=== PATIENT | female | born 1965 | race Caucasian/White ===

== ENCOUNTER 2019-12-24 06:47 | Inpatient (IN) | payer OTHER, SELFPAY ==
[2019-12-24 06:48] VITALS: BP 152/96; PULSE 115; RESP 18; TEMP 36.7; O2SAT 96; BMI 29.0
--- NOTE | 2019-12-24 07:03 | W.ED.PSYCH ---
HPI - Psych General: Chief Complaint: Psychiatric Symptoms Stated Complaint: SI/ HALLUCINATIONS Time Seen by Provider: 12/24/19 06:53 History of Present Illness: HPI Narrative: 54-year-old female presents emergency room via EMS. She states she is having visual hallucinations she is seeing people and will landscape that is changing she finds this very frightening to the point that she felt like she would harm herself and consider commit suicide to make the hallucinations stopped. She has previously been hospitalized for suicide attempts and her scars on her left wrist from prior attempts. She is on Klonopin and Geodon she did not take her Geodon yesterday. She is extremely agitated and fidgety in the exam room. She denies any recent illness. MD complaint: suicidal ideation and altered mental status Onset (ago): hour(s) Duration: constant History of same: Yes Relieving factors: none Exacerbating factors: none Context: recent drug abuse Associated symptoms: Reports visual hallucinations, delusions, suicidal ideation and racing thoughts; Deny homicidal ideation Treatments prior to arrival: none If self harm: admits thoughts of self harm Review of Systems Const: Denies: fever, chills, body aches, change in appetite, fatigue or malaise ENMT: Denies: throat pain, ear pain, nasal discharge or nasal congestion Card: Denies: chest pain, edema, shortness of breath on exertion or shortness of breath when lying down Resp: Denies: shortness of breath, productive cough or non-productive cough GI: Denies: abdominal pain, nausea, vomiting, vomiting blood, coffee grounds in vomit, diarrhea, constipation, bloating, blood in stool or black tarry stool : Denies: flank pain, difficulty urinating, painful urination, urinary frequency or urinary urgency Skin/Breast: Denies: rash or itching Psych: Reports: visual hallucinations and suicidal ideation; Denies: homicidal ideation [facility] PFSH: Medical History (Updated 12/24/19 @ 11:52 by Brenden Cohen DO) GERD (gastroesophageal reflux disease) History of suicidal ideation S/P ORIF (open reduction internal fixation) fracture Surgical History (Updated 12/24/19 @ 08:31 by Brenden Cohen DO) H/O tubal ligation Social History Smoking and tobacco status: current every day smoker Physical Exam Const: COMMON NORMALS: no apparent distress GENERAL APPEARANCE: cooperative and comfortable ORIENTATION/CONSCIOUSNESS: Yes awake, Yes oriented to person, Yes oriented to place and Yes oriented to time HENMT: COMMON NORMALS: normocephalic, head/scalp atraumatic, hearing grossly normal bilaterally, external ears normal, EAC's normal, TM's normal bilaterally, nasal mucous membranes and turbinates normal, moist oral mucous membranes and oropharynx normal HEAD & SCALP: normocephalic and atraumatic NOSE: nasal mucous membranes and turbinates normal EXTERNAL EAR: Yes external ears normal EXTERNAL AUDITORY CANAL: EAC's normal TYMPANIC MEMBRANE: TM's normal bilaterally Eye: COMMON NORMALS: PERRL, EOMs intact bilaterally, conjunctivae normal and no scleral icterus CONJUNCTIVA: Yes conjunctivae normal PUPIL: Yes PERRL Neck/C-Spine: COMMON NORMALS: full ROM, no lymphadenopathy, supple and no JVD Lymph: LYMPHATIC: no lymphadenopathy noted and no lymphedema noted Resp: COMMON NORMALS: normal respiratory effort, no retractions, no use of accessory muscles and clear to auscultation bilaterally AUSCULTATION: clear to auscultation bilaterally Cardio: COMMON NORMALS: no JVD, regular rate, regular rhythm and no murmurs RATE: regular rate RHYTHM: regular rhythm GI: COMMON NORMALS: soft to palpation and no hepatosplenomegaly AUSCULTATION: Yes normoactive bowel sounds PALPATION: Yes soft, No tender, No guarding and Yes no hepatosplenomegaly Extremity: COMMON NORMALS: normal to inspection, normal capillary refill, no clubbing, cyanosis or edema, no calf tenderness and no pedal edema Neuro: SENSORIUM/ORIENTATION: Yes oriented to person, Yes oriented to place and Yes oriented to time Psych: THOUGHT CONTENT: Yes delusion(s) Skin: COMMON NORMALS: no rashes or lesions noted GENERAL SKIN EXAM: no rashes or lesions noted MDM - Psych Lab Data: Labs: Lab Results 12/24/19 12/24/19 12/24/19 Range/Units 07:37 07:37 08:40 WBC 8.0 (4.0-10.0) 10^3/ uL RBC 4.07 L (4.1-5.3) 10^6/u L Hgb 7.9 L (11.5-15.3) g/dL Hct 27.8 L (37.0-47.0) % MCV 68.3 L (81-99) fL MCH 19.4 L (28.0-34.0) pg MCHC 28.4 L (30.0-36.0) g/dL RDW 19.8 H (12.1-15.1) % Plt Count 313 (130-400) 10^3/c mm MPV 10.3 (7.4-10.4) fL Neut % (Auto) 76.5 % Lymph % (Auto) 16.2 % [place] % (Auto) 5.9 % Eos % (Auto) 0.5 % Baso % (Auto) 0.4 % Neut # (Auto) 6.1 (1.8-7.7) 10^3/u L Lymph # (Auto) 1.3 (0.8-4.8) 10^3/u L [place] # (Auto) 0.5 (0.2-0.9) 10^3/u L Eos # (Auto) 0.0 (0.0-0.8) 10^3/u L Baso # (Auto) 0.0 (0.0-0.1) 10^3/u L Nucleated RBC % (a uto) 0 % Nucleated RBCs # 0.0 /100WBC Sodium (136-145) mmol/L Potassium (3.5-5.1) mmol/L Chloride (98-107) mmol/L Carbon Dioxide (22-29) mmol/L Anion Gap (5-19) BUN (6-20) mg/dL Creatinine (0.5-0.9) mg/dL GFR Calculation (90-130) mL/min Glucose (65-115) mg/dL Calculated Osmolal ity (285-295) mOsm/k g Calcium (8.5-10.5) mg/dL Total Bilirubin (0.15-1.2) mg/dL AST (0-32) U/L ALT (0-33) U/L Alkaline Phosphata se (35-105) IU/L Creatine Kinase (26-192) U/L Total Protein (6.6-8.7) g/dL Albumin (3.5-5.2) g/dL Globulin (1.3-4.6) g/dL Urine Color Yellow (Yellow) Urine Appearance Clear (CLEAR) Urine pH 5 (5-7) Ur Specific Gravit y 1.005 (1.005-1.030) Urine Protein Neg (Negative) Urine Glucose (UA) Norm (Normal) Urine Ketones Negative (Negative) Urine Blood Neg (Negative) Urine Nitrate Negative (Negative) Urine Bilirubin Neg (NEGATIVE) Urine Urobilinogen Norm (Negative) mg/dL Ur Leukocyte Erika ase Negative (Negative) Salicylates (3-10) mg/dL Urine Opiates Scre en Negative (Negative) ng/mL Acetaminophen (10-30) ug/mL Ur Barbiturates Sc reen Negative (Negative) ng/mL Ur Phencyclidine S crn Negative (Negative) ng/mL Ur Amphetamines Sc reen Positive H (Negative) ng/mL U Benzodiazepines Scrn Negative (Negative) ng/mL Urine Cocaine Scre en Negative (Negative) ng/mL U Marijuana (THC) Screen Negative (Negative) ng/mL Ethyl Alcohol (0-10) mg/dL 12/24/19 12/24/19 Range/Units 08:40 08:40 WBC (4.0-10.0) 10^3/ uL RBC (4.1-5.3) 10^6/u L Hgb (11.5-15.3) g/dL Hct (37.0-47.0) % MCV (81-99) fL MCH (28.0-34.0) pg MCHC (30.0-36.0) g/dL RDW (12.1-15.1) % Plt Count (130-400) 10^3/c mm MPV (7.4-10.4) fL Neut % (Auto) % Lymph % (Auto) % [place] % (Auto) % Eos % (Auto) % Baso % (Auto) % Neut # (Auto) (1.8-7.7) 10^3/u L Lymph # (Auto) (0.8-4.8) 10^3/u L [place] # (Auto) (0.2-0.9) 10^3/u L Eos # (Auto) (0.0-0.8) 10^3/u L Baso # (Auto) (0.0-0.1) 10^3/u L Nucleated RBC % (a uto) % Nucleated RBCs # /100WBC Sodium 133 L (136-145) mmol/L Potassium 3.6 (3.5-5.1) mmol/L Chloride 96 L (98-107) mmol/L Carbon Dioxide 24 (22-29) mmol/L Anion Gap 16.6 (5-19) BUN 8 (6-20) mg/dL Creatinine 0.8 (0.5-0.9) mg/dL GFR Calculation 74.5 L (90-130) mL/min Glucose 100 (65-115) mg/dL Calculated Osmolal ity 272 L (285-295) mOsm/k g Calcium 9.2 (8.5-10.5) mg/dL Total Bilirubin 0.4 (0.15-1.2) mg/dL AST 21 (0-32) U/L ALT 14 (0-33) U/L Alkaline Phosphata se 59 (35-105) IU/L Creatine Kinase 267 H (26-192) U/L Total Protein 7.8 (6.6-8.7) g/dL Albumin 4.4 (3.5-5.2) g/dL Globulin 3.4 (1.3-4.6) g/dL Urine Color (Yellow) Urine Appearance (CLEAR) Urine pH (5-7) Ur Specific Gravit y (1.005-1.030) Urine Protein (Negative) Urine Glucose (UA) (Normal) Urine Ketones (Negative) Urine Blood (Negative) Urine Nitrate (Negative) Urine Bilirubin (NEGATIVE) Urine Urobilinogen (Negative) mg/dL Ur Leukocyte Erika ase (Negative) Salicylates 0.4 L (3-10) mg/dL Urine Opiates Scre en (Negative) ng/mL Acetaminophen < 5.0 L (10-30) ug/mL Ur Barbiturates Sc reen (Negative) ng/mL Ur Phencyclidine S crn (Negative) ng/mL Ur Amphetamines Sc reen (Negative) ng/mL U Benzodiazepines Scrn (Negative) ng/mL Urine Cocaine Scre en (Negative) ng/mL U Marijuana (THC) Screen (Negative) ng/mL Ethyl Alcohol < 10 (0-10) mg/dL Discharge Plan Discharge Patient Disposition: Admitted As Inpatient Admit Provider: Mariano Granda Clinical Impression: Suicidal ideation, Drug-induced psychotic disorder, Acute anxiety, Microcytic anemia, Rhabdomyolysis Condition: Stable Interventions: ED Discharge Assessment Last Done: 12/24/19 10:15 ED Charges Last Done: 12/24/19 10:15 Discharge Date/Time: 12/24/19 10:16 Coding Level of Care Code 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
[2019-12-24 07:48] LABS: Add Urine Microscopic? NO
[2019-12-24 07:51] LABS: Bilirubin Urine Neg (NEGATIVE); Blood Urine Neg (Negative); Glucose Urine UA Norm (Normal); Ketones Urine Negative (Negative); Leukocyte Esterase Urine Negative (Negative); Nitrate Urine Negative (Negative); Protein Urine Neg (Negative); Specific Gravity, Urine 1.005 (1.005-1.030); Urine Appearance Clear (CLEAR); Urine Color Yellow (Yellow); Urobilinogen Urine Norm (Negative); pH Urine 5 (5-7)
[2019-12-24 08:01] LABS: Amphetamines Screen Urine Positive (Negative); Barbiturates Screen Urine Negative (Negative); Benzodiazepines Screen Urine Negative (Negative); Cocaine Screen Urine Negative (Negative); Opiate Screen Urine Negative (Negative); PCP Screen Urine Negative (Negative); THC Screen Urine Negative (Negative)
[2019-12-24] MEDS: LORazepam 1 mg Tablet PO (08:21)
[2019-12-24] MEDS: ziprasidone hcl 40 mg Capsule PO ×2 (08:21→17:25)
[2019-12-24 08:48] LABS: Basophils % 0.4 %; Eosinophils % 0.5 %; Hematocrit 27.8 % (37.0-47.0); Hemoglobin 7.9 g/dL (11.5-15.3); Lymphocytes # 1.3 10^3/uL (0.8-4.8); Lymphocytes % 16.2 %; Mean Corpuscular HGB Conc 28.4 g/dL (30.0-36.0); Mean Corpuscular Hemoglobin 19.4 pg (28.0-34.0); Mean Corpuscular Volume 68.3 fL (81-99); Mean Platelet Volume 10.3 fL (7.4-10.4); Monocytes # 0.5 10^3/uL (0.2-0.9); Monocytes % 5.9 %; Neutrophils # 6.1 10^3/uL (1.8-7.7); Neutrophils % 76.5 %; Nucleated Red Blood Cells % 0 %; Platelet Count 313 10^3/cmm (130-400); Red Blood Count 4.07 10^6/uL (4.1-5.3); Red Cell Distribution Width 19.8 % (12.1-15.1)
[2019-12-24 09:02] LABS: Alanine Aminotransferase 14 U/L (0-33); Albumin Level 4.4 g/dL (3.5-5.2); Alkaline Phosphatase 59 IU/L (35-105); Anion Gap 16.6 (5-19); Aspartate Amino Transferase 21 U/L (0-32); Blood Urea Nitrogen 8 mg/dL (6-20); Calcium 9.2 mg/dL (8.5-10.5); Carbon Dioxide 24 mmol/L (22-29); Chloride 96 mmol/L (98-107); Globulin 3.4 g/dL (1.3-4.6); Glomerular Filtration Rate 74.5 mL/min (90-130); Glucose 100 mg/dL (65-115); Osmolality Calculated 272 mOsm/kg (285-295); Potassium 3.6 mmol/L (3.5-5.1); Salicylate 0.4 mg/dL (3-10); Sodium 133 mmol/L (136-145); Total Bilirubin 0.4 mg/dL (0.15-1.2); Total Protein 7.8 g/dL (6.6-8.7)
[2019-12-24 09:03] LABS: Acetaminophen < 5.0 ug/mL (10-30); Alcohol Level < 10 mg/dL (0-10)
[2019-12-24 09:47] LABS: Creatine Phosphokinase 267 U/L (26-192)
[2019-12-24 10:15] VITALS: BP 134/83; PULSE 101; RESP 18; TEMP 36.6; O2SAT 95
[2019-12-24 10:25] VITALS: BP 120/83; PULSE 104; RESP 18
[2019-12-24 12:57] VITALS: BP 122/80; PULSE 97; RESP 18; TEMP 36.6; O2SAT 97
[2019-12-24] MEDS: CLONazepam 0.5 mg Tablet PO (17:25)
[2019-12-24] MEDS: diclofenac 75 mg DR Tablet PO (17:25)
[2019-12-24] MEDS: benztropine 1 mg Tablet 0.5 MG PO (17:25)
[2019-12-24 19:51] VITALS: BP 106/72; PULSE 99; RESP 17; TEMP 36.2; O2SAT 97
[2019-12-25 06:00] VITALS: BP 117/74; PULSE 86; RESP 18; TEMP 36.5; O2SAT 93
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
[2019-12-25] MEDS: diclofenac 75 mg DR Tablet PO ×2 (08:42→17:04)
[2019-12-25] MEDS: CLONazepam 0.5 mg Tablet PO ×2 (08:42→17:05)
[2019-12-25] MEDS: benztropine 1 mg Tablet 0.5 MG PO ×2 (08:43→17:05)
[2019-12-25] MEDS: ziprasidone hcl 40 mg Capsule PO (08:43)
[2019-12-25] MEDS: pantoprazole DR 40 mg Tablet PO (08:43)
[2019-12-25 14:00] VITALS: BP 99/67; PULSE 89; RESP 18
[2019-12-25] MEDS: ziprasidone hcl 60 mg Capsule PO (17:05)
[2019-12-25 20:37] VITALS: BP 99/62; PULSE 82; RESP 20; TEMP 36.9; O2SAT 97
[2019-12-26 06:00] VITALS: BP 110/77; PULSE 78; RESP 20; TEMP 36.4; O2SAT 93
[2019-12-26] MEDS: ziprasidone hcl 60 mg Capsule PO ×2 (07:44→17:27)
[2019-12-26] MEDS: diclofenac 75 mg DR Tablet PO ×2 (09:54→17:24)
[2019-12-26] MEDS: benztropine 1 mg Tablet 0.5 MG PO ×2 (09:54→17:24)
[2019-12-26] MEDS: CLONazepam 0.5 mg Tablet PO ×2 (09:54→17:24)
[2019-12-26] MEDS: pantoprazole DR 40 mg Tablet PO (09:54)
[2019-12-26 14:00] VITALS: BP 112/77; PULSE 83; RESP 20; TEMP 36.6; O2SAT 99
--- NOTE | 2019-12-26 14:15 | P.PN_ITS ---
Subjective NPU Subjective: Interval history: Elizabeth presented today, reporting that she feels that the increase in her Geodon was the thing that she needed. She reports that she is feeling optimistic that things are going to get better if she just stays on the medication and avoids the pitfalls of her addiction past. She reports that overall, she is feeling better, she is eating fine, she slept better last night and is optimistic about the future. Mental Status Exam MSE Comments: This is an overweight, versus obese, white female, with adequate dress, grooming, and eye contact. No abnormal movements. Cooperative with exam in no acute distress. Speech was normal rate and volume. Mood described as better; affect congruent. Thought process, organized. Thought content: patient denied any suicidal or homicidal ideation, there were no delusions reported or noted, patient denied any auditory or visual hallucinations. Attention, concentration, and memory appeared intact but were not formally tested. Alert and oriented times three. Insight and judgment are fair. Vitals/I&O/Wt Last Vital Signs Temp 97.9 F 12/26/19 22:00 Pulse 128 H 12/26/19 22:00 Resp 18 12/26/19 22:00 BP 83/58 12/26/19 22:00 Pulse Ox 98 12/26/19 22:00 Weight last 48 hrs Weight 81.647 kg Data NPU : 12/24/19 08:40 12/24/19 08:40 A&P Additional A&P Information (1) Suicidal ideation: This is a 54 year old, , white female, with a history of schizophrenia who had been doing well on a lower dose of Geodon, but having some breakthrough symptoms, who presents open to a trial of increasing the medica tion. Continue medication except: Encourage individual, group, and milieu therapy. Continue q-15 minute check for safety. Will work with treatment team to find appropriate discharge plan. (2) Drug-induced psychotic disorder: (3) Acute anxiety: (4) Schizophrenia: Involuntary Hold Information 96 Hour Hold: 96 Hour Involuntary Admission: Yes 96 Hour Hold Ending Date: 12/30/19 96 Hour Hold Ending Time: 00:01 Attestations NPU Medical Necessity Statement*: Inpatient hospitalization is medically necessary and the clinically appropriate intervention at this time. We will monitor medications and make changes as indicated. Likely length of stay 1-3 days. Coding Level of Care Code Acute Stamping Press Operator for Chey Navarro
[2019-12-26 22:00] VITALS: BP 83/58; PULSE 128; RESP 18; TEMP 36.6; O2SAT 98
[2019-12-27 06:00] VITALS: BP 108/75; PULSE 93; RESP 16; TEMP 36.6; O2SAT 95
[2019-12-27] MEDS: ziprasidone hcl 60 mg Capsule PO (06:27)
[2019-12-27] MEDS: benztropine 1 mg Tablet 0.5 MG PO (08:34)
[2019-12-27] MEDS: CLONazepam 0.5 mg Tablet PO (08:34)
[2019-12-27] MEDS: pantoprazole DR 40 mg Tablet PO (08:34)
[2019-12-27] MEDS: diclofenac 75 mg DR Tablet PO (08:34)
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
[2019-12-27 13:53] VITALS: BP 108/75; PULSE 93; RESP 16; TEMP 36.6; O2SAT 95
[2019-12-27 13:54] VITALS: BP 108/75; PULSE 93; RESP 16; TEMP 36.6; O2SAT 95
== END 2019-12-27 16:20 | disposition home or self-care (01) | DRG 897 ==
LOC: ER 10:03 → NP 10:04
PROVIDERS: Admitting Provider Psychiatry & Neurology Psychiatry; Emergency Provider Family Medicine; Family Provider Nurse Practitioner Family; PCP Nurse Practitioner Family; Visit Provider Psychiatry & Neurology Psychiatry
DX: F15.951 Other stimulant use, unspecified with stimulant-induced psychotic disorder with hallucinations (principal); R45.851 Suicidal ideations; F15.90 Other stimulant use, unspecified, uncomplicated; F12.90 Cannabis use, unspecified, uncomplicated; F43.12 Post-traumatic stress disorder, chronic; Z86.19 Personal history of other infectious and parasitic diseases; E03.9 Hypothyroidism, unspecified; E78.00 Pure hypercholesterolemia, unspecified; K21.9 Gastro-esophageal reflux disease without esophagitis; F17.210 Nicotine dependence, cigarettes, uncomplicated; F20.9 Schizophrenia, unspecified; F41.9 Anxiety disorder, unspecified; Z81.8 Family history of other mental and behavioral disorders
CPT/HCPCS: 12345; 36415; 80053; 80306; 80307; 81003; 82550; 85025; 99284

== ENCOUNTER 2020-06-28 00:38 | Inpatient (IN) | payer OTHER, SELFPAY ==
[2020-06-28] VITALS (13 sets, daily range): BP systolic 105–160; BP diastolic 63–101; PULSE 70–126; RESP 15–21; TEMP 37–37.6; O2SAT 93–96; BMI 25.8
--- NOTE | 2020-06-28 00:49 | ECG_ITS ---
[facility] Test Date: 2020-06-28 Pat Name: Elizabeth Donaldson Department: Room: Gender: Female General Assignment Reporter: : 1965 Requested By: Summer Hewitt Order Number: [id number] Windy MD: BEKA STEEN Measurements Intervals [place] Rate: 115 P: 56 HI: 156 QRS: -7 QRSD: 89 T: 39 QT: 340 QTc: 471 Interpretive Statements SINUS TACHYCARDIA INFERIOR MYOCARDIAL INFARCTION , PROBABLY OLD [40+ ms Q WAVE AND/OR ST/T ABNORMALITY IN II/aVF] Compared to ECG 02/20/2019 01:01:10 Myocardial infarct finding now present T-wave abnormality no longer present Electronically Signed On 06-29-2020 19:30:51 [employer] COUN[employer] by BEKA STEEN [id number]
[2020-06-28] MEDS: LORazepam 1 mg Tablet 2 MG PO (00:55)
[2020-06-28] MEDS: lidocaine 1% INJ 20 mL SUBCUT (00:59)
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
[2020-06-28 01:51] LABS: Basophils % 0.4 %; Hematocrit 30.7 % (37.0-47.0); Lymphocytes # 0.4 10^3/uL (0.8-4.8); Lymphocytes % 3.7 %; Mean Corpuscular HGB Conc 29.3 g/dL (30.0-36.0); Mean Corpuscular Hemoglobin 21.3 pg (28.0-34.0); Mean Corpuscular Volume 72.6 fL (81-99); Mean Platelet Volume 10.5 fL (7.4-10.4); Monocytes # 0.3 10^3/uL (0.2-0.9); Monocytes % 3.1 %; Neutrophils # 9.58 10^3/uL (1.8-7.7); Neutrophils % 92.1 %; Nucleated Red Blood Cells % 0 %; Platelet Count 258 10^3/cmm (130-400); Red Blood Count 4.23 10^6/uL (4.1-5.3); Red Cell Distribution Width 19.5 % (12.1-15.1); White Blood Count 10.4 10^3/uL (4.0-10.0)
[2020-06-28 01:59] LABS: Lithium 0.1 mmol/L (0.6-1.2); Phenytoin Dilantin 0.8 ug/mL (10-20); Valproic Acid Level 2.8 ug/mL (50-100)
[2020-06-28] MEDS: iohexol 300 mg/mL 100 mL Btl IV (02:10)
[2020-06-28 02:11] LABS: Alanine Aminotransferase 12 U/L (0-33); Albumin Level 4.4 g/dL (3.5-5.2); Alkaline Phosphatase 66 IU/L (35-105); Anion Gap 17.5 (5-19); Aspartate Amino Transferase 24 U/L (0-32); Blood Urea Nitrogen 13 mg/dL (6-20); Calcium 9.2 mg/dL (8.5-10.5); Carbon Dioxide 21 mmol/L (22-29); Chloride 102 mmol/L (98-107); Globulin 3.2 g/dL (1.3-4.6); Glomerular Filtration Rate 46.6 mL/min (90-130); Glucose 140 mg/dL (65-115); Osmolality Calculated 286 mOsm/kg (285-295); Potassium 3.5 mmol/L (3.5-5.1); Salicylate 0.5 mg/dL (3-10); Sodium 137 mmol/L (136-145); Thyroid Stimulating Hormone 1.82 uIU/mL (0.27-4.20); Total Bilirubin 0.7 mg/dL (0.15-1.2); Total Protein 7.6 g/dL (6.6-8.7)
[2020-06-28 02:12] LABS: Acetaminophen < 5.0 ug/mL (10-30); Alcohol Level < 10 mg/dL (0-10)
[2020-06-28] MEDS: haloperidol inj 5 mg/mL INJ 1 mL IM (03:12)
[2020-06-28] MEDS: ceFAZolin 1,000 mg SDV 1000 MG IVP (03:31)
[2020-06-28 03:37] LABS: Partial Thromboplastin Time 26.1 SECONDS (23.9-36.7); Troponin(5th) Baseline 17 ng/L (0-10)
--- NOTE | 2020-06-28 03:57 | PC.NURSE ---
patient in bed but restless.
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
--- NOTE | 2020-06-28 05:06 | ECG_ITS ---
[facility] Test Date: 2020-06-28 Pat Name: Elizabeth Donaldson Department: Room: Gender: Female Customer Service Associate: : 1965 Requested By: Summer Hewitt Order Number: [id number] Reading MD: BEKA STEEN Measurements Intervals Ary Rate: 108 P: 55 IA: 160 QRS: -7 QRSD: 93 T: 30 QT: 358 QTc: 481 Interpretive Statements SINUS TACHYCARDIA INFERIOR MYOCARDIAL INFARCTION , PROBABLY OLD [40+ ms Q WAVE AND/OR ST/T ABNORMALITY IN II/aVF] Compared to ECG 06/28/2020 01:04:33 No significant changes Electronically Signed On 06-29-2020 19:35:22 LUMBER PULLER by BEKA STEEN [id number]
[2020-06-28] MEDS: hyDROXYzine 25 mg Capsule 50 MG PO ×2 (05:37→19:01)
[2020-06-28] MEDS: haloperidol 5 mg Tablet PO (05:37)
[2020-06-28] MEDS: dextrose 5%-sod chloride 0.45% 1,000 ML 75 ML IV ×2 (05:38→18:57)
[2020-06-28] MEDS: pantoprazole 40 mg SDV IVP (05:38)
--- NOTE | 2020-06-28 05:41 | PC.PHAR ---
Pharmacokinetic dosing service Date: 06/28/20 Time: 540 Objective: Patient: Elizabeth Donaldson Floor: ICU-2 Age: 54 yo Serum creatinine: 1.2 mg/dL Height: 67.0 Inches Weight (kg): 74.843 Diagnosis: Relevant medical/social history: Cultures and sensitivities: Other labs: Assessment: IBW (kg): 61.60 Dosing wt(kg): 74.843 Estimated Creatinine clearance (ml/min): 51.5 CRCL method: Cockcroft and Gault using ibw(default). Drug selected: Vancomycin Loading dose (mg): 0 Vd (liters): 67.4 (factor used: 0.9 L/kg) Christophe (hr-1): 0.047 Half life (hrs): 14.75 Recommended dose: 1250 mg Interval: 24 hrs Infusion time (hrs): 1.5 Predicted peak (mcg/mL): 26.5 Predicted trough (mcg/mL): 9.20 Total body weight is being used for vancomycin dosing. Renal function is stable [ ] /unstable [ ] Recommendations: Give Vancomycin 1250 mg q 24 hrs with an expected Cpeak of 26.5 mcg/ml and an expected Ctrough of 9.20 mcg/ml Renal dosing of other antibiotics (review renal dosing of other medications and list guidelines here): Thank you for the consult, will continue to follow. Signature: Rachana Townsend [facility]
--- NOTE | 2020-06-28 05:42 | PC.NURSE ---
Patient arrived to ICU at 0515. Patient is under SI precautions and monitoring. Patient agitated and having some visual hallucinations and speaking jumbled words.
--- NOTE | 2020-06-28 05:53 | XR_ITS ---
WS: [id number] XR chest 1V portable [id number] REASON FOR EXAM: Neck Lac FINDINGS: The examination is somewhat overexposed. The heart is at the upper limits of normal in size. Mild tortuosity thoracic aorta. Small horizontally oriented collection of air is seen in the soft tissues just above the mid right cl avicle. Small collection of air is also seen in the same area on the left. Vertically oriented linear collections of air are seen in the base of the neck bilaterally. A definite pneumothorax or pneumome diastinum is not identifiable at this time. No significant abnormality of the bony thorax. XR/XR chest 1V portable [id number] IMPRESSION: Soft tissue air in the neck and over the apices of both having the appearance o f subcutaneous emphysema. No pneumothorax or pneumomediastinum identified marion ramirez follow-up chest x-ray is recommended.
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
--- NOTE | 2020-06-28 05:53 | PC.NURSE ---
Dr. Koroma bedside and assessing patient, gave verbal orders to order chest xray.
[2020-06-28 06:09] LABS: Thyroid Stimulating Hormone 1.58 uIU/mL (0.27-4.20)
--- NOTE | 2020-06-28 06:11 | PC.NURSE ---
Patient is now resting with eyes closed, after being very anxious and restless upon arrival to unit. Continue care.
[2020-06-28 06:15] LABS: Vitamin B12 307 pg/mL (232-1245)
[2020-06-28 06:17] LABS: Folate Level 3.4 ng/mL (4.8-37.3)
[2020-06-28 06:26] LABS: Ferritin 11 ng/mL (15-150); Iron 12 ug/dL (37-145); Percent Saturation 3.1 % (20-50); Total Iron Binding Capacity 381 mcg/dl; Unsaturated Iron Binding 369 ug/dL (112-347)
[2020-06-28 06:38] LABS: Troponin 5 2HR 17.54 ng/L (0-10); Troponin 5 2HR Delta 0.54 ABS# (0-10)
[2020-06-28] MEDS: OLANZapine 5 mg ODT PO (06:38)
[2020-06-28 06:44] LABS: Estmated Average Glucose 94; Hemoglobin A1C 4.9 % (4.0-6.0)
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
[2020-06-28 08:26] LABS: Amphetamines Screen Urine Positive (Negative); Barbiturates Screen Urine Negative (Negative); Benzodiazepines Screen Urine Positive (Negative); Cocaine Screen Urine Negative (Negative); Opiate Screen Urine Negative (Negative); PCP Screen Urine Negative (Negative); THC Screen Urine Negative (Negative)
[2020-06-28 08:30] LABS: Add Urine Microscopic? YES; Bilirubin Urine Neg (Negative); Blood Urine Neg (Negative); Glucose Urine UA Norm (Normal); Ketones Urine 1+ (Negative); Leukocyte Esterase Urine Negative (Negative); Nitrate Urine Negative (Negative); Protein Urine Neg (Negative); Urine Appearance SL Hazy (CLEAR); Urine Color Yellow (Yellow); Urobilinogen Urine Norm (Negative)
[2020-06-28 08:31] LABS: Add Urine Culture? Yes; Bacteria Urine 3+ /hpf; WBC Urine 0-4 /hpf (0-5)
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
--- NOTE | 2020-06-28 10:17 | PC.RESP ---
SMOKING CESSATION INFORMATION SENT TO PATIENT.
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
[2020-06-28] MEDS: trazodone 50 mg Tablet PO (19:01)
--- NOTE | 2020-06-28 21:13 | PC.NURSE ---
Patient restless and anxious at the beginning of shift. Patient said she was very tired and wanted to rest. Patient seems more alert and orientated to surroundings this shift. PRN medication given per orders to help with anxiety and restlessness. 1:1 sitter at bedside to prevent patient from pulling lines. Continue care.
[2020-06-29] VITALS (20 sets, daily range): BP systolic 82–130; BP diastolic 53–82; PULSE 67–85; RESP 13–24; TEMP 36.4–37.2; O2SAT 93–96
[2020-06-29] MEDS: pantoprazole 40 mg SDV IVP (04:18)
--- NOTE | 2020-06-29 04:56 | PC.NURSE ---
Patient reported needing to void. Upon using BSC patient was unable to urinate. Upon bladder scan patient had over 1000mL's of urine in place. Notified Dr. Nickerson and received orders to place a aguirre and received 1350 mL's of urine in return at 0420. Krishan gave telephone orders to leave aguirre in place to continue to drain for measurement of urine output. Continue care.
[2020-06-29 05:10] LABS: Basophils % 0.4 %; Eosinophils # 0.1 10^3/uL (0.0-0.8); Eosinophils % 3.1 %; Hematocrit 28.2 % (37.0-47.0); Hemoglobin 8.3 g/dL (11.5-15.3); Lymphocytes # 1.1 10^3/uL (0.8-4.8); Lymphocytes % 23.7 %; Mean Corpuscular HGB Conc 29.4 g/dL (30.0-36.0); Mean Corpuscular Hemoglobin 21.2 pg (28.0-34.0); Mean Corpuscular Volume 72.1 fL (81-99); Mean Platelet Volume 10.6 fL (7.4-10.4); Monocytes # 0.4 10^3/uL (0.2-0.9); Monocytes % 8.2 %; Neutrophils % 64.4 %; Nucleated Red Blood Cells % 0 %; Platelet Count 198 10^3/cmm (130-400); Red Blood Count 3.91 10^6/uL (4.1-5.3); Red Cell Distribution Width 19.6 % (12.1-15.1); White Blood Count 4.5 10^3/uL (4.0-10.0)
--- NOTE | 2020-06-29 05:35 | PC.NURSE ---
SHIFT SUMMARY: Uneventful shift. Burkett still in place and draining appropriately. Sitter still at bedside. Continue care.
[2020-06-29 05:42] LABS: Alanine Aminotransferase 12 U/L (0-33); Albumin Level 3.5 g/dL (3.5-5.2); Alkaline Phosphatase 53 IU/L (35-105); Anion Gap 14.3 (5-19); Aspartate Amino Transferase 33 U/L (0-32); Blood Urea Nitrogen 5 mg/dL (6-20); Calcium 8.5 mg/dL (8.5-10.5); Carbon Dioxide 24 mmol/L (22-29); Chloride 104 mmol/L (98-107); Glomerular Filtration Rate 103.8 mL/min (90-130); Glucose 113 mg/dL (65-115); Magnesium 2.1 mg/dL (1.7-2.3); Osmolality Calculated 286 mOsm/kg (285-295); Phosphorus 3.4 mg/dL (2.5-4.5); Potassium 3.3 mmol/L (3.5-5.1); Sodium 139 mmol/L (136-145); Total Bilirubin 0.6 mg/dL (0.15-1.2); Total Protein 6.5 g/dL (6.6-8.7)
[2020-06-29] MEDS: dextrose 5%-sod chloride 0.45% 1,000 ML 75 ML IV (08:15)
[2020-06-29] MEDS: OLANZapine 5 mg ODT PO (08:26)
--- NOTE | 2020-06-29 08:33 | XR_ITS ---
WS: [id number] XR chest 1V portable [id number] REASON FOR EXAM: f/up pneumomediastinum FINDINGS: Compared to the previous day's chest x-ray, the subcutaneous emphysema in the base the neck and over the lung apices is resolving. (CT scan of the prior day demonstrated superior mediastinal emphysema a nd subcutaneous emphysema without pneumothorax). Area of platelike atelectasis in the lower right lung which in retrospect is present on the previous examination. The lungs appear fully inflated. XR/XR chest 1V portable [id number] IMPRESSION: Resolving subcutaneous emphysema.
[2020-06-29] MEDS: amoxicillin-clav 875-125 mg Tablet 1 TAB PO ×2 (09:29→17:04)
[2020-06-29] MEDS: LORazepam 2 mg Tablet PO (13:57)
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
[2020-06-29] MEDS: ferrous gluconate 324 mg Tablet PO (17:04)
[2020-06-29] MEDS: famotidine 20 mg Tablet PO (17:04)
--- NOTE | 2020-06-29 18:14 | PC.NURSE ---
report called to npu for transfer at this time ... bladder scan done results of 50cc noted
[2020-06-29] MEDS: trazodone 50 mg Tablet PO (21:57)
[2020-06-29] MEDS: hyDROXYzine 25 mg Capsule 50 MG PO (21:57)
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
[2020-06-30 06:00] VITALS: BP 107/58; PULSE 69; RESP 15; TEMP 36.4; O2SAT 95
[2020-06-30] MEDS: ferrous gluconate 324 mg Tablet PO ×2 (08:12→17:35)
[2020-06-30] MEDS: amoxicillin-clav 875-125 mg Tablet 1 TAB PO ×2 (08:12→20:45)
[2020-06-30] MEDS: famotidine 20 mg Tablet PO ×2 (08:12→20:46)
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
[2020-06-30 14:00] VITALS: BP 114/76; PULSE 84; RESP 18; TEMP 36.7; O2SAT 95
[2020-06-30] MEDS: hyDROXYzine 25 mg Capsule 50 MG PO (20:47)
[2020-06-30] MEDS: trazodone 50 mg Tablet PO (20:57)
[2020-06-30 21:10] VITALS: BP 112/76; PULSE 70; RESP 18; TEMP 36.4; O2SAT 96
[2020-06-30] MEDS: acetaminophen 325 mg Tablet 650 MG PO (21:29)
[2020-07-01 06:00] VITALS: BP 120/73; PULSE 80; RESP 18; TEMP 36.4; O2SAT 92
[2020-07-01] MEDS: amoxicillin-clav 875-125 mg Tablet 1 TAB PO ×2 (08:25→20:55)
[2020-07-01] MEDS: famotidine 20 mg Tablet PO ×2 (08:25→20:55)
[2020-07-01] MEDS: ferrous gluconate 324 mg Tablet PO ×2 (08:25→16:55)
[2020-07-01] MEDS: acetaminophen 325 mg Tablet 650 MG PO ×2 (09:15→16:55)
[2020-07-01 14:00] VITALS: BP 134/89; PULSE 100; RESP 18; TEMP 37
--- NOTE | 2020-07-01 15:15 | P.PN_ITS ---
Subjective NPU Subjective: Interval history: Elizabeth presents today reporting that she really understands the need for her to get connected with sober living resources. She reports that she has been trying to contact her family over the last couple days and no one is answering. She reports that they will not talk to her and they are really upset with her. We did process the fact that what she did was so dangerous and exposed the family to her intoxicated madness. She feels that part of their anger with her is that they feel she did it on purpose and she adamantly denies intent or even recollection of the exact moment. But because of that she knows she has to do better and reports that she did go to a rehab in 2016 and was quite successful after that. We agreed that we would work with the treatment team tomorrow to hopefully get her connected given that she has insurance and could possibly go to a rehab. Mental Status Exam MSE Comments: This is a well-nourished, well-developed white female looking older than her stated age with adequate eye contact in the hospital scrubs, looking less disheveled. No abnormal movements. Cooperative exam in no acute distress. Speech was more normal rate and volume. Mood described as feeling better, affect congruent. Thought process organized. Thought content: Patient denied current suicidal or homicidal ideation, there were no delusions reported or noted, she denied any auditory or visual hallucinations. Attention and concentration were intact and memory appeared reliable but none were formally tested. She is alert and oriented x3. Insight and judgment are improving and impulse control is improving. Vitals/I&O/Wt Last Vital Signs Temp 98.6 F 07/01/20 14:00 Pulse 100 07/01/20 14:00 Resp 18 07/01/20 14:00 BP 134/89 07/01/20 14:00 Pulse Ox 92 07/01/20 06:00 Weight last 48 hrs Weight 73.709 kg Physical Exam Urinary Catheter Management^: Burkett: Cath Placed During This Visit: yes, but has since been removed by the nurse Reason for Continuing Indwelling Catheter: Not indwelling catheter Urinary Catheter Date of Insertion: 06/29/20 Urinary Catheter Time of Insertion: 04:20 Date Urinary Catheter Removed: 06/29/20 Time Urinary Catheter Discontinued: 11:10 Data NPU : 06/29/20 04:06 06/29/20 04:06 A&P Additional A&P Information (1) Acute psychosis: (2) Suicidal ideation: (3) Chronic schizophrenia with acute exacerbation: (4) Methamphetamine abuse: (5) Methamphetamine-induced psychotic disorder: This is a 54-year-old white female with a long history of mental health issues, addiction and now likely methamphetamine induced psychosis which led to dangerous behavior who presents after being admitted to the ICU secondary to her psychosis. 1. Continue current medication. We continue to discuss the possibility of medication interventions but she endorses that when she is not using in general she feels quite well. 2. Continue every 15 minute checks for safety. 3. Encourage individual, group and milieu therapy. 4. We will work with the treatment team and evaluate for credible lethality with a plan to discharge to sober living treatment at the highest level of care to which she is willing to commit. Involuntary Hold Information 96 Hour Hold: 96 Hour Involuntary Admission: No 96 Hour Hold Ending Date: 12/30/19 96 Hour Hold Ending Time: 00:01 Attestations NPU Medical Necessity Statement*: EYEDOTTER hospitalization is medically necessary and the clinically appropriate intervention at this time. We will monitor medications and make changes as indicated. She will be in the hospital for over 2 midnights. Likely length of stay 1-3 days. Coding Level of Care Code Acute Safety Equipment Testing Specialist for Chey Navarro
[2020-07-01 20:17] VITALS: BP 103/71; PULSE 73; RESP 17; TEMP 36.6; O2SAT 99
[2020-07-01] MEDS: hyDROXYzine 25 mg Capsule 50 MG PO (20:55)
[2020-07-01] MEDS: trazodone 50 mg Tablet PO (20:55)
[2020-07-02] MEDS: acetaminophen 325 mg Tablet 650 MG PO ×2 (03:47→11:38)
[2020-07-02 06:00] VITALS: BP 144/98; PULSE 77; RESP 16; TEMP 36.9; O2SAT 95
[2020-07-02] MEDS: amoxicillin-clav 875-125 mg Tablet 1 TAB PO (08:31)
[2020-07-02] MEDS: famotidine 20 mg Tablet PO (08:31)
[2020-07-02] MEDS: ferrous gluconate 324 mg Tablet PO (08:39)
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
[2020-07-02 12:46] VITALS: BP 144/98; PULSE 77; RESP 16; TEMP 36.9; O2SAT 95
== END 2020-07-02 14:26 | disposition home or self-care (01) | DRG 605 ==
LOC: ER 03:08 → ICU 04:33 → NP 06-29 18:22
PROVIDERS: Admitting Provider Family Medicine; Emergency Provider Emergency Medicine; PCP Nurse Practitioner Family; Visit Provider Student in an Organized Health Care Education/Training Program
DX: S21.131A Puncture wound without foreign body of right front wall of thorax without penetration into thoracic cavity, initial encounter (principal); R45.851 Suicidal ideations; X78.1XXA Intentional self-harm by knife, initial encounter; T79.7XXA Traumatic subcutaneous emphysema, initial encounter; B19.20 Unspecified viral hepatitis C without hepatic coma; E03.9 Hypothyroidism, unspecified; E78.5 Hyperlipidemia, unspecified; F41.9 Anxiety disorder, unspecified; F20.9 Schizophrenia, unspecified; K21.9 Gastro-esophageal reflux disease without esophagitis; D50.9 Iron deficiency anemia, unspecified; F17.210 Nicotine dependence, cigarettes, uncomplicated; F15.159 Other stimulant abuse with stimulant-induced psychotic disorder, unspecified; N63.20 Unspecified lump in the left breast, unspecified quadrant; F43.10 Post-traumatic stress disorder, unspecified; E78.00 Pure hypercholesterolemia, unspecified; R33.9 Retention of urine, unspecified
CPT/HCPCS: 12002; 12345; 36415; 51702; 71045; 71260; 80053; 80156; 80164; 80178; 80185; 80306; 80307; 81001; 82607; 82728; 82746; 83036; 83540; 83550; 83735; 84100; 84145; 84443; 84484; 85025; 85045; 85610; 85730; 87086; 93005; 94664; 96372; 99285; C9113; J0690; J1630; J3370; J7050; J7799; Q9967

== ENCOUNTER 2020-10-31 23:58 | Inpatient (IN) | payer OTHER, SELFPAY ==
[2020-11-01] VITALS (7 sets, daily range): BP systolic 94–133; BP diastolic 54–82; PULSE 76–121; RESP 18–20; TEMP 37–37.7; O2SAT 9–94; BMI 25.0
--- NOTE | 2020-11-01 01:22 | CTR_ITS ---
PROCEDURE INFORMATION: Exam: CT Head Without Contrast Exam date and time: 11/01/2020 1:26 AM Age: 55 years old Clinical indication: Altered mental status/memory loss; Patient HX: Hallucinations. Unable to obtain further history. ; Additional info: Visual hallucinations TECHNIQUE: Imaging protocol: Computed tomography of the head without contrast. Radiation optimization: All CT scans at this facility use at least one of these dose optimization techniques: automated exposure control; mA and/or kV adjustment per patient size (includes targeted exams where dose is matched to clinical indication); or iterative reconstruction. 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 No acute infarct or hemorrhage. Cerebral ventricles: No ventriculomegaly. Bones/joints: Unremarkable. No acute fracture. Paranasal sinuses: Paranasal sinuses are clear. No air-fluid level. Mastoid air cells: Visualized mastoid air cells are clear. Soft tissues: Unremarkable. CT/CT head wo con* [id number] IMPRESSION: No acute infarct or hemorrhage. Radiation Dose CTDIVOL = (mGy): DLP = 1527.28 (mGy-cm)
[2020-11-01] MEDS: LORazepam 2 mg/mL INJ 1 mL 0.5 MG IVP (01:30)
--- NOTE | 2020-11-01 01:30 | ED_ITS ---
HPI - Psych General: Chief Complaint: Anxiety Stated Complaint: anxiety Time Seen by Provider: 11/01/20 00:30 Source: patient Mode of arrival: ambulatory Limitations: altered mental status History of Present Illness: HPI Narrative: 55-year-old female patient presents to the emergency department with acute anxiety. She was brought in by her brother who dropped her off in the ER and immediately left. She is complaining of anxiety that has been present for 2 days. While in the lobby, rubber tester staff states patient was experiencing visual and auditory hallucinations. She questioned staff of the helicopter pad that was in the lobby. She reports hearing voices in the back of her brothers van, but there was not anybody there . She is obviously under the influence of illicit substance, reports she possibly used methamphetamine 1 to 2 days ago. Cut willis were also noted to the right lateral neck. She states tried to kill herself today by using a ceramic knife to cut her neck. She reports her family would like it if she was . She continues to ask me if we are going to set her on fire. I attempted to console the patient she is at the hospital and is in safe environment and no one was going to hurt her. She has a history of hypothyroidism but denies taking supplemental thyroid medication. She denies fever or chills, she denies pain. She has previous history of suicidal ideation with admission to [facility]. History of schizophrenia and methamphetamine abuse. MD complaint: suicidal ideation, feels depressed and altered mental status Onset (ago): day(s) (1-2) Duration: constant History of same: Yes Context: recent drug abuse Associated psychiatric symptoms: suicidal ideation, auditory hallucinations and visual hallucinations Associated symptoms: Reports auditory hallucinations, visual hallucinations, depression and suicidal ideation Treatments prior to arrival: none If self harm: admits thoughts of self harm, has acted on plan and self-inflicted trauma Review of Systems General: Reports: 10 or more systems reviewed and unremarkable except in HPI and below Const: Denies: fever(s), chills, fatigue, malaise or diaphoresis Eyes: Denies: blurry vision or eye redness ENMT: Denies: throat pain, dental pain or disequilibrium Card: Denies: chest pain, palpitations or irregular heart rhythm Resp: Denies: dyspnea, productive cough, non-productive cough or wheezing GI: Denies: abdominal pain, nausea or vomiting : Denies: difficulty voiding or dysuria Musc: Denies: back pain Skin/Breast: Reports: skin tenderness; Denies: rash or pruritus Neuro: Denies: headache(s), weakness in extremities or behavioral changes Psych: Reports: anxiety, depression, paranoia, difficulty concentrating, visual hallucinations, auditory hallucinations and suicidal ideation Randal/Lymph: Denies: easy bruising PFSH ED PFSH: Medical History (Updated 11/01/20 @ 03:47 by SONIA Acevedo) Acute anxiety GERD (gastroesophageal reflux disease) History of suicidal ideation Microcytic anemia S/P ORIF (open reduction internal fixation) fracture Schizophrenia Surgical History H/O tubal ligation Family History Father Colon cancer Social History Smoking and tobacco status: current every day smoker Female Reproductive History: Date of last menstrual period: 09/16/17 Physical Exam Const: COMMON NORMALS: no acute distress, patient oriented x3, alert and well nourished EXAM LIMITATIONS: altered mental status GENERAL APPEARANCE: co operative, well kempt, well developed and anxious; not ill appearing and not frail appearing NUTRITIONAL APPEARANCE: thin ORIENTATION/CONSCIOUSNESS: Yes awake, Yes oriented to person, Yes oriented to place and Yes oriented to time HENMT: COMMON NORMALS: normocephalic, atraumatic, Normal external nose present and moist oral mucous membranes HEAD & SCALP: normal to inspection, normocephalic and atraumatic FACE & SINUS: normal facial exam and face symmetric NOSE: Normal external nose present MOUTH: lip normal, tongue normal and moist mucous membranes abnormal (dry) THROAT: posterior oropharynx normal and uvula midline Eye: COMMON NORMALS: Equal, round and reactive pupils present and EOMs intact bilaterally GENERAL EYE: appearance normal, both eyes and all related structures PUPIL: Yes Equal, round and reactive pupils present Neck/C-Spine: COMMON NORMALS: full ROM, no lymphadenopathy and supple GENERAL: Yes normal visual inspection and Yes trachea midline CERVICAL SPINE: Yes cervical ROM normal Lymph: LYMPHATIC: no lymphadenopathy noted Chest: COMMONS NORMALS: normal inspection of the chest and normal palpation of entire chest wall Resp: COMMON NORMALS: normal respiratory effort, No retractions, No use of accessory muscles and clear to auscultation bilaterally EFFORT & INSPECTION: Yes able to speak in complete sentences and No labored AUSCULTATION: clear to auscultation bilaterally and no wheezes Cardio: COMMON NORMALS: regular rate, regular rhythm, S1 normal heart sound present, S2 normal heart sound present and Peripheral pulses 2+ throughout RATE: regular rate and tachycardic RHYTHM: regular rhythm HEART SOUNDS: S1 normal heart sound present and S2 normal heart sound present PERIPHERAL PULSES: Peripheral pulses 2+ throughout GI: COMMON NORMALS: Normal to inspection, nondistended, normoactive bowel sounds present, Soft to palpation and non-tender INSPECTION: Yes normal to inspection, No abdominal wall ecchymosis and No Abdominal wall edema PALPATION: Yes Soft to palpation : COMMON NORMALS: Yes no CVA tenderness BLADDER/KIDNEY EXAM: Yes no CVA tenderness Back/Pelvis: COMMON NORMALS: no CVA tenderness, thoracic and lumbar spine normal to inspection, no thoracic nor lumbar tenderness, thoraco-lumbar ROM normal and straight leg raise negative bilaterally Extremity: COMMON NORMALS: normal to inspection, full ROM, capillary refill normal, no joint enlargement, no clubbing, cyanosis or edema, no calf tenderness and no pedal edema GENERAL: Yes normal exam except as noted Neuro: GEORGE COMA SCALE: document GCS findings George coma scale eye opening: Spontaneous George coma scale verbal response: Orientated George coma scale motor response: Obey commands [place] coma scale total score: 15 COMMON NORMALS: patient oriented x3 and no focal motor deficits SENSORIUM/ORIENTATION: Yes alert, Yes oriented to person, Yes oriented to place and Yes oriented to time SPEECH: speech normal GAIT: Yes Normal gait present MOTOR EXAM: 5/5 motor strength present throughout Right pupil size (mm): 5 Left pupil size (mm): 5 Psych: COMMON NORMALS: cooperative APPEARANCE: Yes grossly normal and Yes well kempt ATTITUDE: Yes paranoid and Yes bizarre ACTIVITY/MOTOR BEHAVIOR: Yes fidgeting, Yes disorganized behavior and Yes restless SPEECH: Yes excessive MOOD & AFFECT: Yes elevated mood and Yes anxious THOUGHT PROCESS: Circumstantial thought process present, disorganized and Flight of ideas present THOUGHT CONTENT: Yes delusions Delusional thought content details: paranoid and Yes Hallucination(s) present auditory and visual ATTENTION/CONCENTRATION: Yes attention grossly impaired and Yes concentration grossly impaired MEMORY/COGNITION: Yes memory grossly intact INSIGHT: Fair insight present (Psych) JUDGEMENT: Fair judgement present (Psych) Skin: COMMON NORMALS: no rashes or lesions noted, turgor normal, no petechiae and no mottling GENERAL SKIN EXAM: no rashes or lesions noted and turgor normal WOUNDS: Yes wounds noted size (0.5 cm x 3 linear to the anterior neck, horizontal, subcutaneous) and with surrounding erythema; no drainage HAIR: normal NAILS: normal Procedures Laceration Laceration 1: Site: neck (x 3 -horizontal linear subcutaneous lacerations) Side (If applicable): right Size (cm): 0.5 Description: linear and clean Depth: simple, single layer Pre-repair: wound explored, irrigated extensively, deep structures intact and extensive debridement Subcutaneous layer closed with: other (Skin adhesive) MDM - Psych MDM Narrative: Medical decision making narrative: 55-year-old female patient presents to the emergency department due to paranoia and suicidal behavior. She exhibited auditory and visual hallucinations during her stay, urine drug screen revealed methamphetamine detection. CT of the head without acute abnormalities. White blood count slightly elevated 12.1 thousand, urinary tract infection appreciated, positive leukoesterase bacteria and blood. She did not complain of abdominal pain nor has she exhibited nausea vomiting. She was able to tolerate p.o. fluids here in the ED. Chemistry unremarkable with exception of slightly elevated AST of 83. Patient received Ativan, Haldol and Benadryl in the ED due to restless and paranoia behavior. Spoke with Dr. Granda regarding patient's case, advised to obtain Covid screen due to elevated temperature which more than likely is due to methamphetamine use. He advised rapid Covid screen, rapid, if negative, agrees to admit to NPU -she did receive 1 g of Rocephin here in the ED for urinary tract infection. She is remained resting comfortably, easily awakened. No further orders from Dr. Granda obtained. Lab Data: Labs: Lab Results 11/01/20 11/01/20 11/01/20 Range/Units 01:33 01:33 02:40 WBC 12.1 H (4.0-10.0) 10^3/ uL RBC 4.16 (4.1-5.3) 10^6/u L Hgb 9.1 L (11.5-15.3) g/dL Hct 30.5 L (37.0-47.0) % MCV 73.3 L (81-99) fL MCH 21.9 L (28.0-34.0) pg MCHC 29.8 L (30.0-36.0) g/dL RDW 18.6 H (12.1-15.1) % Plt Count 271 (130-400) 10^3/c mm MPV 10.4 (7.4-10.4) fL Neut % (Auto) 84.0 % Lymph % (Auto) 7.8 % Rock % (Auto) 7.3 % Eos % (Auto) 0.1 % Baso % (Auto) 0.5 % Neut # (Auto) 10.18 H (1.8-7.7) 10^3/u L Lymph # (Auto) 0.9 (0.8-4.8) 10^3/u L Rock # (Auto) 0.9 (0.2-0.9) 10^3/u L Eos # (Auto) 0.0 (0.0-0.8) 10^3/u L Baso # (Auto) 0.1 (0.0-0.1) 10^3/u L Nucleated RBC % (a uto) 0 % Nucleated RBCs # 0.0 /100WBC Sodium 136 (136-145) mmol/L Potassium 3.8 (3.5-5.1) mmol/L Chloride 100 (98-107) mmol/L Carbon Dioxide 22 (22-29) mmol/L Anion Gap 17.8 (5-19) BUN 8 (6-20) mg/dL Creatinine 0.9 (0.5-0.9) mg/dL GFR Calculation 64.8 L (90-130) mL/min Glucose 98 (65-115) mg/dL Calculated Osmolal ity 280 L (285-295) mOsm/k g Calcium 8.7 (8.5-10.5) mg/dL Total Bilirubin 0.7 (0.15-1.2) mg/dL AST 83 H (0-32) U/L ALT 19 (0-33) U/L Alkaline Phosphata se 59 (35-105) IU/L Total Protein 7.3 (6.6-8.7) g/dL Albumin 4.3 (3.5-5.2) g/dL Globulin 3.0 (1.3-4.6) g/dL TSH 1.45 (0.27-4.20) uIU/ mL Urine Color Yellow (Yellow) Urine Appearance Clear (CLEAR) Urine pH 6.5 (5-7) Ur Specific Gravit y 1.010 (1.005-1.030) Urine Protein Neg (Negative) Urine Glucose (UA) Norm (Normal) Urine Ketones Negative (Negative) Urine Blood 3+ H (Negative) Urine Nitrate Negative (Negative) Urine Bilirubin Neg (Negative) Urine Urobilinogen Norm (Negative) mg/dL Ur Leukocyte Erika ase 2+ H (Negative) Urine RBC 40-50 H (0-2) /hpf Urine WBC 10-15 H (0-5) /hpf Ur Squamous Epith Cells 0-4 H (0-5) /hpf Amorphous Sediment Not Reportable Urine Bacteria Trace (NONE) /hpf Salicylates 0.5 L (3-10) mg/dL Urine Opiates Scre en (Negative) ng/mL Acetaminophen < 5.0 L (10-30) ug/mL Ur Barbiturates Sc reen (Negative) ng/mL Ur Phencyclidine S crn (Negative) ng/mL Ur Amphetamines Sc reen (Negative) ng/mL U Benzodiazepines Scrn (Negative) ng/mL Urine Cocaine Scre en (Negative) ng/mL U Marijuana (THC) Screen (Negative) ng/mL Ethyl Alcohol < 10 (0-10) mg/dL 11/01/20 Range/Units 02:40 WBC (4.0-10.0) 10^3/ uL RBC (4.1-5.3) 10^6/u L Hgb (11.5-15.3) g/dL Hct (37.0-47.0) % MCV (81-99) fL MCH (28.0-34.0) pg MCHC (30.0-36.0) g/dL RDW (12.1-15.1) % Plt Count (130-400) 10^3/c mm MPV (7.4-10.4) fL Neut % (Auto) % Lymph % (Auto) % Rock % (Auto) % Eos % (Auto) % Baso % (Auto) % Neut # (Auto) (1.8-7.7) 10^3/u L Lymph # (Auto) (0.8-4.8) 10^3/u L Rock # (Auto) (0.2-0.9) 10^3/u L Eos # (Auto) (0.0-0.8) 10^3/u L Baso # (Auto) (0.0-0.1) 10^3/u L Nucleated RBC % (a uto) % Nucleated RBCs # /100WBC Sodium (136-145) mmol/L Potassium (3.5-5.1) mmol/L Chloride (98-107) mmol/L Carbon Dioxide (22-29) mmol/L Anion Gap (5-19) BUN (6-20) mg/dL Creatinine (0.5-0.9) mg/dL GFR Calculation (90-130) mL/min Glucose (65-115) mg/dL Calculated Osmolal ity (285-295) mOsm/k g Calcium (8.5-10.5) mg/dL Total Bilirubin (0.15-1.2) mg/dL AST (0-32) U/L ALT (0-33) U/L Alkaline Phosphata se (35-105) IU/L Total Protein (6.6-8.7) g/dL Albumin (3.5-5.2) g/dL Globulin (1.3-4.6) g/dL TSH (0.27-4.20) uIU/ mL Urine Color (Yellow) Urine Appearance (CLEAR) Urine pH (5-7) Ur Specific Gravit y (1.005-1.030) Urine Protein (Negative) Urine Glucose (UA) (Normal) Urine Ketones (Negative) Urine Blood (Negative) Urine Nitrate (Negative) Urine Bilirubin (Negative) Urine Urobilinogen (Negative) mg/dL Ur Leukocyte Erika ase (Negative) Urine RBC (0-2) /hpf Urine WBC (0-5) /hpf Ur Squamous Epith Cells (0-5) /hpf Amorphous Sediment Urine Bacteria (NONE) /hpf Salicylates (3-10) mg/dL Urine Opiates Scre en Negative (Negative) ng/mL Acetaminophen (10-30) ug/mL Ur Barbiturates Sc reen Negative (Negative) ng/mL Ur Phencyclidine S crn Negative (Negative) ng/mL Ur Amphetamines Sc reen Positive H (Negative) ng/mL U Benzodiazepines Scrn Negative (Negative) ng/mL Urine Cocaine Scre en Negative (Negative) ng/mL U Marijuana (THC) Screen Negative (Negative) ng/mL Ethyl Alcohol (0-10) mg/dL Imaging Data^: Other Imaging: Radiologist's impression: [facility] [address] [address] Scan Report Signed Patient: Melida Donaldson #: [id number] : 1965Acct#:[id number] Age/Sex: 55 / FADM Date: 10/31/20 Loc: ERRoom/Bed: Attending Dr: Ordering Provider/Ordering MD: Jazmyne Ibrahim Date of Service: 11/01/20 Procedure(s): CT head wo con* [id number] Accession Number(s): [id number] Report Number: [id number] PROCEDURE INFORMATION: Exam: CT Head Without Contrast Exam date and time: 11/01/2020 1:26 AM Age: 55 years old Clinical indication: Altered mental status/memory loss; Patient HX: Hallucinations. Unable to obtain further history. ; Additional info: Visual hallucinations TECHNIQUE: Imaging protocol: Computed tomography of the head without contrast. Radiation optimization: All CT scans at this facility use at least one of these dose optimization techniques: automated exposure control; mA and/or kV adjustment per patient size (includes targeted exams where dose is matched to clinical indication); or iterative reconstruction. 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 No acute infarct or hemorrhage. Cerebral ventricles: No ventriculomegaly. Bones/joints: Unremarkable. No acute fracture. Paranasal sinuses: Paranasal sinuses are clear. No air-fluid level. Mastoid air cells: Visualized mastoid air cells are clear. Soft tissues: Unremarkable. CT/CT head wo con* [id number] IMPRESSION: No acute infarct or hemorrhage. Radiation Dose CTDIVOL = (mGy): DLP = 1527.28 (mGy-cm) Dictated By:Korey Fontenot Signed By:Korey FontenotSignaram Date/Time:11/01/20238 DD/ 7 EKG Data^: EKG 1: EKG interpretation date: 11/01/20 EKG interpretation time: 03:35 Other EKG comments: Sinus rhythm, ventricular rate 89, compared to previous EKGs, no acute changes. Discharge Plan Discharge Patient Disposition: Admitted As Inpatient Clinical Impression: Acute psychosis, Methamphetamine intoxication, Suicidal intent UTI (urinary tract infection) Qualifiers: Urinary tract infection type: acute cystitis Hematuria presence: with hematuria Qualified Code(s): N30.01 - Acute cystitis with hematuria Condition: Stable Coding Level of Care Code ED Monitor Technician for Chg Fwd Exam Comprehensive
[2020-11-01 01:43] LABS: Basophils # 0.1 10^3/uL (0.0-0.1); Basophils % 0.5 %; Eosinophils % 0.1 %; Hematocrit 30.5 % (37.0-47.0); Hemoglobin 9.1 g/dL (11.5-15.3); Lymphocytes # 0.9 10^3/uL (0.8-4.8); Lymphocytes % 7.8 %; Mean Corpuscular HGB Conc 29.8 g/dL (30.0-36.0); Mean Corpuscular Hemoglobin 21.9 pg (28.0-34.0); Mean Corpuscular Volume 73.3 fL (81-99); Mean Platelet Volume 10.4 fL (7.4-10.4); Monocytes # 0.9 10^3/uL (0.2-0.9); Monocytes % 7.3 %; Neutrophils # 10.18 10^3/uL (1.8-7.7); Nucleated Red Blood Cells % 0 %; Platelet Count 271 10^3/cmm (130-400); Red Blood Count 4.16 10^6/uL (4.1-5.3); Red Cell Distribution Width 18.6 % (12.1-15.1); White Blood Count 12.1 10^3/uL (4.0-10.0)
[2020-11-01] MEDS: LORazepam 2 mg/mL INJ 1 mL 1 MG IVP (01:51)
[2020-11-01] MEDS: sodium chloride 0.9% 1,000 ML 999 ML IV (02:03)
[2020-11-01 02:08] LABS: Alanine Aminotransferase 19 U/L (0-33); Albumin Level 4.3 g/dL (3.5-5.2); Alkaline Phosphatase 59 IU/L (35-105); Anion Gap 17.8 (5-19); Aspartate Amino Transferase 83 U/L (0-32); Blood Urea Nitrogen 8 mg/dL (6-20); Calcium 8.7 mg/dL (8.5-10.5); Carbon Dioxide 22 mmol/L (22-29); Chloride 100 mmol/L (98-107); Glomerular Filtration Rate 64.8 mL/min (90-130); Glucose 98 mg/dL (65-115); Osmolality Calculated 280 mOsm/kg (285-295); Potassium 3.8 mmol/L (3.5-5.1); Salicylate 0.5 mg/dL (3-10); Sodium 136 mmol/L (136-145); Thyroid Stimulating Hormone 1.45 uIU/mL (0.27-4.20); Total Bilirubin 0.7 mg/dL (0.15-1.2); Total Protein 7.3 g/dL (6.6-8.7)
[2020-11-01 02:09] LABS: Acetaminophen < 5.0 ug/mL (10-30); Alcohol Level < 10 mg/dL (0-10)
--- NOTE | 2020-11-01 02:17 | ECG_ITS ---
[facility] ED Test Date: 2020-11-01 Pat Name: Elizabeth Donaldson Department: Room: 154 Gender: Female Silk Blocker: : 1965 Requested By: Jazmyne Giraldo Order Number: [id number] Windy MD: Leilani Neil M.D. Measurements Intervals [place] Rate: 89 P: 58 MI: 170 QRS: -5 QRSD: 89 T: 6 QT: 401 QTc: 488 Interpretive Statements SINUS RHYTHM LOW QRS VOLTAGE IN PRECORDIAL LEADS [QRS DEFLECTION < 1.0 mV IN CHEST LEADS] MODERATE ST DEPRESSION [0.05+ mV ST DEPRESSION] Compared to ECG 06/28/2020 03:19:26 Low QRS voltage now present ST (T wave) deviation now present Sinus tachycardia no longer present Myocardial infarct finding no longer present Electronically Signed On 11-07-2020 8:03:06 CDT by Leilani Neil M.D. [email or web address]
[2020-11-01 02:53] LABS: Glucose Urine UA Norm (Normal); Ketones Urine Negative (Negative); Protein Urine Neg (Negative); Urine Appearance Clear (CLEAR); Urine Color Yellow (Yellow); pH Urine 6.5 (5-7)
[2020-11-01 02:54] LABS: Add Urine Microscopic? YES; Bilirubin Urine Neg (Negative); Blood Urine 3+ (Negative); Leukocyte Esterase Urine 2+ (Negative); Nitrate Urine Negative (Negative); RBC Urine 40-50 /hpf (0-2); Urobilinogen Urine Norm (Negative)
[2020-11-01 02:55] LABS: Add Urine Culture? Yes; Bacteria Urine TRACE /hpf; Squamous Epithelial Cell Urine 0-4 /hpf (0-5)
[2020-11-01] MEDS: haloperidol inj 5 mg/mL INJ 1 mL IVP (02:55)
[2020-11-01] MEDS: diphenhydrAMINE 50 mg/mL SDV 1mL 25 MG IVP (03:00)
[2020-11-01 03:26] LABS: Amphetamines Screen Urine Positive (Negative); Barbiturates Screen Urine Negative (Negative); Benzodiazepines Screen Urine Negative (Negative); Cocaine Screen Urine Negative (Negative); Opiate Screen Urine Negative (Negative); PCP Screen Urine Negative (Negative); THC Screen Urine Negative (Negative)
[2020-11-01] MEDS: cefTRIAXone 1,000 MG in sodium chloride 0.9% (plus) 50 ML 100 MG IV (04:04)
[2020-11-01 05:37] LABS: SARS Covid-2 Antigen Negative (Negative)
[2020-11-01] MEDS: pantoprazole DR 40 mg Tablet PO (07:32)
[2020-11-01] MEDS: ziprasidone hcl 40 mg Capsule PO ×2 (07:33→18:49)
[2020-11-01] MEDS: CLONazepam 0.5 mg Tablet PO ×2 (07:33→21:27)
[2020-11-01] MEDS: benztropine 1 mg Tablet 0.5 MG PO ×2 (07:34→21:27)
[2020-11-01] MEDS: diclofenac 75 mg DR Tablet PO ×2 (07:34→21:26)
[2020-11-01] MEDS: famotidine 20 mg Tablet PO ×2 (07:35→21:28)
--- NOTE | 2020-11-01 15:18 | P.HP_ITS ---
Providers/Chief Complaint Admitting Physician: Donald Jaeger DO Primary Care Provider: Rachel Arcos Chief Complaint: anxiety HPI NPU History of Present Illness Elizabeth Donaldson is a 55 year old female with a history of schizophrenia and anxiety presented to the emergency department with confusion, hallucinations, delusions. Patient is somewhat obtunded, sleepy, difficult historian and not able to provide many details although she does report some depressive symptoms secondary to family stress and ongoing anxiety symptoms. Reports that she had a panic attack last night and believes that is why she came to the emergency department. Patient does report recent methamphetamine use within the past day or 2. Reports that she typically uses methamphetamine every couple of months. Currently denying any auditory or visual destinations. Currently denying any suicidal ideation although she does report having recent suicidal ideation. Review of Systems General: Reports: ROS unobtainable due to mental status Meds NPU Home Medications Medication Instructions Recorded Confirmed Last Taken Type benztropine 0.5 mg PO BID 30 Days #60 tab 12/27/19 11/01/20 Unknown Rx clonazepam 0.5 mg PO BID 30 Days #60 tab 12/27/19 11/01/20 Unknown Rx diclofenac sodium 75 mg PO BID 30 Days #60 tab 12/27/19 11/01/20 Unknown Rx famotidine 20 mg PO BID 30 Days #30 tab 12/27/19 11/01/20 Unknown Rx omeprazole 20 mg PO DAILY 30 Days #30 cap 12/27/19 11/01/20 Unknown Rx fluoxetine [Prozac] 20 mg PO BEDTIME 06/28/20 11/01/20 Unknown History ziprasidone HCl 40 mg PO BID 11/01/20 11/01/20 Unknown History Allergies Allergy/AdvReac Type Severity Reaction Status Date / Time No Known Allergies Allergy Verified 11/01/20 05:50 PFSH NPU PFSH: Medical History Acute anxiety GERD (gastroesophageal reflux disease) History of suicidal ideation Microcytic anemia S/P ORIF (open reduction internal fixation) fracture Schizophrenia Surgical History H/O tubal ligation Family History Father Colon cancer Social History Smoking and tobacco status: current every day smoker Other Psychiatric History: Other Psychiatric History: Previous H&P reviewed, multiple psychiatric admissions, reports outpatient medication management at [facility], unclear on when last follow-up occurred. Mental Status Exam MSE Comments: Appears older than stated age, disheveled, unkempt hair, lying in bed, poor eye contact, frequently rolling over away from interviewer Psychomotor activity is decreased, no agitation Speech is low volume, mumbling, requires prompting, fair articulation, not pressured I am fine, incongruent, constricted, not labile Sleepy, oriented to person, place, time Memory and concentration appear to be fair at best per interview Intellectual functioning is difficult to assess, average at best based on vocabulary, interview Thought process, linear but brief, no flight of ideas, no looseness of associations Thought content, no delusions reported, does not appear to be attending to any internal stimuli, no suicidal or homicidal ideation Insight and judgment appears to be fair Vitals/I&O/Wt Last Vital Signs Temp 98.8 F 11/01/20 14:00 Pulse 84 11/01/20 14:00 Resp 20 H 11/01/20 14:00 BP 107/67 11/01/20 14:00 Pulse Ox 94 11/01/20 14:00 11/01/20 11/01/20 11/01/20 06:59 14:59 22:59 Intake Total 1050 / 1050 Balance 1050 / 1050 Weight last 48 hrs Weight 72.575 kg Data NPU : 11/01/20 01:33 11/01/20 01:33 A&P Assessment and plan (1) Acute psychosis: Status: Acute (2) Methamphetamine abuse: Status: Acute Additional A&P Information 55-year-old female with history of schizophrenia and methamphetamine abuse presented to the emergency department with confusion, disorganization in the context of recent methamphetamine use. Unclear as to whether patient was suicidal or not but reports recent suicidal ideation and stress related symptoms. Continues to report depressive and anxiety symptoms. INVOLUNTARY ADMIT to inpatient psychiatry CONTINUE current medication, continue to monitor Encourage patient to participate in unit activities to include group sessions, u nit milieu Involuntary Hold Information 96 Hour Hold: 96 Hour Involuntary Admission: No 96 Hour Hold Ending Date: 11/07/20 96 Hour Hold Ending Time: 02:00 Attestations NPU Medical Necessity Statement*: Require psychiatric hospitalization for medication stabilization, coordination for safe discharge Time Spent in Patient Care: Greater than 35 minutes (>than 50% of time spent in counselling and/or direct pt care on unit) . Coding Level of Care Code Acute Heel Blacker for Chey Navarro Diagnoses Acute psychosis F23 Methamphetamine abuse F15.10
[2020-11-01] MEDS: fluoxetine 20 mg Capsule PO (21:27)
[2020-11-01] MEDS: hyDROXYzine 25 mg Capsule 50 MG PO (21:28)
[2020-11-02 06:00] VITALS: BP 146/97; PULSE 99; RESP 18; TEMP 36.4; O2SAT 96
[2020-11-02] MEDS: pantoprazole DR 40 mg Tablet PO (08:09)
[2020-11-02] MEDS: ziprasidone hcl 40 mg Capsule PO ×2 (08:09→17:06)
[2020-11-02] MEDS: famotidine 20 mg Tablet PO (08:09)
[2020-11-02] MEDS: benztropine 1 mg Tablet 0.5 MG PO ×2 (08:09→20:22)
[2020-11-02] MEDS: CLONazepam 0.5 mg Tablet PO (08:09)
[2020-11-02] MEDS: diclofenac 75 mg DR Tablet PO ×2 (08:09→20:22)
[2020-11-02] MEDS: acetaminophen 325 mg Tablet 650 MG PO (08:10)
--- NOTE | 2020-11-02 13:45 | PM.NPN ---
Subjective NPU Subjective: Interval history: Continues to be soporific, does not participate in interview, rolls over away from interviewer and does not provide responses to interview questions. Mental Status Exam MSE Comments: Lying in bed, sleeping, does not participate in interview No psychomotor agitation Mumbles but does not say anything intelligible for response to questions Does not provide stated mood Unable to assess memory or concentration Does not appear to be attending to any internal stimuli Insight and judgment appear to be limited Vitals/I&O/Wt Last Vital Signs Temp 97.6 F 11/02/20 06:00 Pulse 99 11/02/20 06:00 Resp 18 11/02/20 06:00 BP 146/97 11/02/20 06:00 Pulse Ox 96 11/02/20 06:00 Weight last 48 hrs Weight 72.575 kg Data NPU : 11/01/20 01:33 11/01/20 01:33 Micro: Microbiology 11/01/20 02:40 Urine Culture - Preliminary Urine,Clean Catch Microbiology 11/01/20 02:40 Urine,Clean Catch Urine Culture - Preliminary A&P Assessment and plan (1) Acute psychosis: Status: Acute (2) Methamphetamine abuse: Status: Acute Additional A&P Information Does not participate in interview today, sleeping most of the day despite several attempts to reevaluate CONTINUE current medication, continue to monitor Involuntary Hold Information 96 Hour Hold: 96 Hour Involuntary Admission: No 96 Hour Hold Ending Date: 11/07/20 96 Hour Hold Ending Time: 02:00 Attestations NPU Medical Necessity Statement*: Continues to require psychiatric hospitalization for medication stabilization, coordination for safe discharge Coding Level of Care Code Acute Chief Librarian Circulation Department for Chey Navarro Diagnoses Acute psychosis F23 Methamphetamine abuse F15.10
[2020-11-02 14:00] VITALS: BP 101/64; PULSE 98; RESP 20; TEMP 36.4; O2SAT 95
[2020-11-02] MEDS: CLONazepam 0.5 mg Tablet 0.25 MG PO (20:22)
[2020-11-02] MEDS: fluoxetine 20 mg Capsule PO (20:23)
[2020-11-02 22:00] VITALS: BP 113/74; PULSE 85; RESP 17; TEMP 36.6; O2SAT 95
[2020-11-03 06:00] VITALS: BP 114/68; PULSE 64; RESP 16; TEMP 36.7; O2SAT 98
[2020-11-03] MEDS: benztropine 1 mg Tablet 0.5 MG PO ×2 (08:59→20:58)
[2020-11-03] MEDS: CLONazepam 0.5 mg Tablet 0.25 MG PO ×2 (08:59→20:59)
[2020-11-03] MEDS: pantoprazole DR 40 mg Tablet PO (09:00)
[2020-11-03] MEDS: ziprasidone hcl 40 mg Capsule PO ×2 (09:00→17:03)
[2020-11-03] MEDS: diclofenac 75 mg DR Tablet PO ×2 (09:00→20:57)
--- NOTE | 2020-11-03 12:27 | P.PN_ITS ---
Subjective NPU Subjective: Interval history: Patient is much more alert today, walking around on the unit although continues to be somewhat confused with frequent pauses before responses Reports some depressive symptoms but denies any suicidal ideation Denies any anxiety symptoms Denies any auditory or visual hallucinations, no stated delusions Reports that she slept so-so. Reports that her appetite is improving Reports being compliant with her medication and denies any medication side effe cts Mental Status Exam MSE Comments: Appropriately groomed and dressed, standing near the nurses station, polite, interactive, good eye contact Psychomotor activity is neither increased nor decreased, no agitation Speech is normal volume, normal rate, spontaneous, clear articulation, not pressured I feel a little better, full range, not labile Alert, oriented to person, place, time, not to situation Memory and concentration appear to be fair at best per interview Thought process, linear but brief, no flight of ideas, no looseness of associations Thought content, no delusions reported, no hallucinations, no suicidal or homicidal ideation Insight and judgment appears to be fair Vitals/I&O/Wt Last Vital Signs Temp 98.1 F 11/03/20 06:00 Pulse 64 11/03/20 06:00 Resp 16 11/03/20 06:00 BP 114/68 11/03/20 06:00 Pulse Ox 98 11/03/20 06:00 Data NPU : 11/01/20 01:33 11/01/20 01:33 Micro: Microbiology 11/01/20 02:40 Urine Culture - Preliminary Urine,Clean Catch Microbiology 11/01/20 02:40 Urine,Clean Catch Urine Culture - Preliminary A&P Assessment and plan (1) Acute psychosis: Status: Acute (2) Methamphetamine abuse: Status: Acute Additional A&P Information Patient appears to be clearing and more alert today and more interactive although continues to be somewhat confused, unclear if underlying thought dis order versus clearing from methamphetamine intoxication and continues to warrant observation prior to medication adjustment. 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
[2020-11-03 14:00] VITALS: BP 113/68; PULSE 72; RESP 18; TEMP 36.3; O2SAT 95
[2020-11-03] MEDS: hyDROXYzine 25 mg Capsule 50 MG PO (20:58)
[2020-11-03] MEDS: fluoxetine 20 mg Capsule PO (20:58)
[2020-11-03] MEDS: trazodone 50 mg Tablet PO (20:59)
[2020-11-03 21:07] VITALS: BP 109/72; PULSE 80; RESP 16; TEMP 36.5; O2SAT 96
[2020-11-04 06:00] VITALS: BP 131/76; PULSE 65; RESP 17; TEMP 36.8; O2SAT 99
[2020-11-04] MEDS: benztropine 1 mg Tablet 0.5 MG PO ×2 (08:08→19:58)
[2020-11-04] MEDS: pantoprazole DR 40 mg Tablet PO (08:09)
[2020-11-04] MEDS: CLONazepam 0.5 mg Tablet 0.25 MG PO ×2 (08:09→19:58)
[2020-11-04] MEDS: ziprasidone hcl 40 mg Capsule PO ×2 (08:09→16:40)
[2020-11-04] MEDS: diclofenac 75 mg DR Tablet PO ×2 (08:09→19:59)
--- NOTE | 2020-11-04 11:05 | PM.NPN ---
Subjective NPU Subjective: Interval history: Reports significant improvement in mood, denies any interval depressive symptoms Denies any interval suicidal ideation, patient states that she does see the scratch on her neck but does not remember doing it and said that it must have been while she was high on meth. Denies any interval hallucinations States that her recent use of methamphetamine was the first time in a few months and acknowledges that she needs to stop using. Mental Status Exam MSE Comments: Sitting in the day room, calm, cooperative, interactive, appropriately groomed and dressed, good eye contact Psychomotor activity is neither increased nor decreased, no agitation Speech is normal volume, normal rate, spontaneous, clear articulation, not pressured I feel pretty good, full range, not labile Alert, oriented to person, place, time, not to situation Memory is fair, concentration is good per interview Thought process, linear but brief, no flight of ideas, no looseness of associations Thought content, no delusions reported, no hallucinations, no suicidal or homicidal ideation Insight and judgment appears to be fair Vitals/I&O/Wt Last Vital Signs Temp 98.3 F 11/04/20 06:00 Pulse 65 11/04/20 06:00 Resp 17 11/04/20 06:00 BP 131/76 11/04/20 06:00 Pulse Ox 99 11/04/20 06:00 Weight last 48 hrs Weight 72.575 kg Data NPU : 11/01/20 01:33 11/01/20 01:33 Micro: Microbiology 11/01/20 02:40 Urine Culture - Final Urine,Clean Catch Microbiology 11/01/20 02:40 Urine,Clean Catch Urine Culture - Final A&P Assessment and plan (1) Acute psychosis: Status: Acute (2) Methamphetamine abuse: Status: Acute Additional A&P Information Does not appear to be disorganized in her speech, thoughts or behaviors, appears to be more organized today, denies any mood symptoms, denies any suicidal ideation CONTINUE current medication, continue to monitor Involuntary Hold Information 96 Hour Hold: 96 Hour Involuntary Admission: No 96 Hour Hold Ending Date: 11/07/20 96 Hour Hold Ending Time: 02:00 Attestations NPU Medical Necessity Statement*: Continues to require psychiatric hospitalization for medication stabilization, coordination for safe discharge Coding Level of Care Code Acute 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
[2020-11-04 13:26] VITALS: BP 130/76; PULSE 65; RESP 17; TEMP 36.8
[2020-11-04 19:55] VITALS: BP 128/79; PULSE 70; RESP 17; TEMP 36.6; O2SAT 95
[2020-11-04] MEDS: fluoxetine 20 mg Capsule PO (19:58)
[2020-11-05 06:00] VITALS: BP 127/75; PULSE 48; RESP 17; TEMP 36.8; O2SAT 95
[2020-11-05] MEDS: pantoprazole DR 40 mg Tablet PO (08:06)
[2020-11-05] MEDS: ziprasidone hcl 40 mg Capsule PO (08:06)
[2020-11-05] MEDS: diclofenac 75 mg DR Tablet PO (08:06)
[2020-11-05] MEDS: benztropine 1 mg Tablet 0.5 MG PO (08:06)
[2020-11-05] MEDS: CLONazepam 0.5 mg Tablet 0.25 MG PO (08:07)
--- NOTE | 2020-11-05 09:42 | PM.NDC ---
Diagnoses at Discharge Discharge Diagnosis (1) Acute psychosis: Status: Acute (2) Methamphetamine abuse: Status: Acute Reason for Visit Reason for Visit: anxiety Hospital Course Hospital Course 55-year-old female presents to the emergency department with confusion, hallucinations with positive urine drug screen for methamphetamine. Patient was somewhat obtunded the first couple of days and minimally participative in interview but subsequently cleared. Patient denied any suicidal ideation, denied any mood symptoms and was much more organized in her speech, behavior and thoughts with no complaints with regards to hallucinations or any other perceptual disturbances, denied any delusions. Patient was restarted on home medications with some decrease in her clonazepam to clonazepam 0.25 mg twice daily secondary to concerns that her increased sleepiness was related to her benzodiazepine in addition to methamphetamine intoxication. Patient denied any medication side effects, participated in unit milieu with no reports of any behavioral disturbances. Patient was able to communicate her understanding of the need to abstain from use of substances and its contribution to her presentation. Patient was not suicidal at the time of discharge and did not appear to pose an imminent threat of harm to self or others. Low to moderate risk of harm to self or others given no current suicidal ideation and no current complaints of any psychiatric symptoms although patient's risk continues to be elevated if she continues to use substances or is noncompliant with her medication, medication management and counseling follow-up leading to unexpected, impulsive behavior. Risk mitigation included psychiatric hospitalization for observation for any ongoing perceptual disturbances, suicidal ideation, medication stabilization as well as recommendation to abstain from the use of substances and alcohol and be compliant with her follow-up care. Patient was able to communicate her understanding of the need to abstain from the use of substances and alcohol as well as the need for compliance with her medication, medication management and substance counseling/treatment post discharge in order to further mitigate her risk of harm to self and others. Involuntary Hold Information 96 Hour Hold: 96 Hour Involuntary Admission: No 96 Hour Hold Ending Date: 11/07/20 96 Hour Hold Ending Time: 02:00 Mental Status Exam MSE Comments: Sitting up on her bed, appropriately groomed and dressed, calm, cooperative, interactive, good eye contact Psychomotor activity is neither increased nor decreased, no agitation Speech is normal volume, normal rate, spontaneous, clear articulation, not pressured I good, full range, not labile Alert, oriented to person, place, time, not to situation Memory and concentration are good per interview Thought process, linear, no flight of ideas, no looseness of associations Thought content, no delusions, no hallucinations, no suicidal or homicidal ideation Insight and judgment appears to be fair Discharge Data Data Completed and Pending: Completed Studies During Hospitalization Category Date Time Status CT head wo con* 7 0450 Stat Cat Scan 11/01/20 01:22 Completed Vitals: Last Vital Signs Temp 98.2 F 11/05/20 06:00 Pulse 48 L 11/05/20 06:00 Resp 17 11/05/20 06:00 BP 127/75 11/05/20 06:00 Pulse Ox 95 11/05/20 06:00 Discharge Plan Discharge Patient Disposition: Home Condition: Stable Prescriptions: Continued fluoxetine [Prozac] 20 mg Capsule 20 mg PO BEDTIME RF: 0 benztropine 0.5 mg tablet 0.5 mg PO BID 30 Days Qty: 60 RF: 1 clonazepam 0.5 mg tablet 0.5 mg PO BID 30 Days Qty: 60 RF: 1 famotidine 20 mg tablet 20 mg PO BID 30 Days Qty: 30 RF: 1 omeprazole 20 mg capsule,delayed release(DR/EC) 20 mg PO DAILY 30 Days Qty: 30 RF: 1 diclofenac sodium 75 mg tablet,delayed release (DR/EC) 75 mg PO BID 30 Days Qty: 60 RF: 1 ziprasidone HCl 40 mg Capsule 40 mg PO BID RF: 0 Discharge Orders: Discharge Order (Routine); Ordered 11/05/20 Ordered By: Donald Jaeger Referrals: Wai Ho MD [Other] - 11/21/20 10:30 am (Hospital follow up Will be done over the phone) Rachel Arcos FNP [Primary Care Provider] - Discharge Diet: Regular Discharge Activity: Resume usual activity Discharge Attestations NPU Time Spent in Discharge Care*: greater than 30 min Status at Discharge: Cognitive status at discharge: cognitively intact, Behavioral status at discharge: cooperative, Functional status at discharge: independent ambulation Overall status at discharge: patient is back to baseline Coding Level of Care Code Acute 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
[2020-11-05 09:43] VITALS: BP 127/75; PULSE 48; RESP 17; TEMP 36.8; O2SAT 95
== END 2020-11-05 11:21 | disposition home or self-care (01) | DRG 885 ==
LOC: ER 11-01 03:46 → NP 11-01 04:10
PROVIDERS: Admitting Provider Psychiatry & Neurology Psychiatry; Emergency Provider Nurse Practitioner Family; PCP Nurse Practitioner Family; Visit Provider Psychiatry & Neurology Psychiatry
DX: F23 Brief psychotic disorder (principal); N30.01 Acute cystitis with hematuria; R45.851 Suicidal ideations; S11.81XA Laceration without foreign body of other specified part of neck, initial encounter; X78.1XXA Intentional self-harm by knife, initial encounter; F15.10 Other stimulant abuse, uncomplicated; Z86.59 Personal history of other mental and behavioral disorders; Z87.898 Personal history of other specified conditions; F17.200 Nicotine dependence, unspecified, uncomplicated; K21.9 Gastro-esophageal reflux disease without esophagitis
CPT/HCPCS: 70450; 80053; 80306; 80307; 81001; 84443; 85025; 87086; 87426; 93005; 96365; 96375; 99285; J0696; J1200; J1630; J2060; J7030

== ENCOUNTER 2021-06-26 21:09 | Inpatient (IN) | payer OTHER, SELFPAY ==
[2021-06-26 21:12] VITALS: BP 136/91; PULSE 104; RESP 22; O2SAT 95; BMI 28.2
--- NOTE | 2021-06-26 22:01 | XRR_ITS ---
PROCEDURE INFORMATION: Exam: XR Chest Exam date and time: 06/26/2021 10:01 PM Age: 55 years old Clinical indication: Shortness of breath; Additional info: Cp TECHNIQUE: Imaging protocol: XR of the chest. Views: 1 view. COMPARISON: CR XR chest 1V portable [id number] 06/29/2020 8:51 AM FINDINGS: Lungs: Stable hyperaerated lungs consistent with deep inspiratory effort vs reactive airway disease vs mild COPD . Pleural spaces: Unremarkable. No pleural effusion. No pneumothorax. Heart/Mediastinum: Mild to moderate hiatal hernia. Bones/joints: Unremarkable. XR/XR chest 1V portable [id number] IMPRESSION: 1. Stable hyperaerated lungs consistent with deep inspiratory effort vs reactive airway disease vs mild COPD . 2. Mild to moderate hiatal hernia. Radiation Dose CTDIVOL = (mGy): DLP = (mGy-cm)
[2021-06-26 22:16] LABS: Basophils # 0.1 10^3/uL (0.0-0.1); Basophils % 0.9 %; Eosinophils # 0.1 10^3/uL (0.0-0.8); Eosinophils % 0.6 %; Hematocrit 29.6 % (37.0-47.0); Hemoglobin 9.2 g/dL (11.5-15.3); Lymphocytes # 1.1 10^3/uL (0.8-4.8); Lymphocytes % 11.1 %; Mean Corpuscular HGB Conc 31.1 g/dL (30.0-36.0); Mean Corpuscular Hemoglobin 23.7 pg (28.0-34.0); Mean Corpuscular Volume 76.1 fl (81-99); Mean Platelet Volume 9.9 fL (7.4-10.4); Monocytes # 0.7 10^3/uL (0.2-0.9); Monocytes % 7.3 %; Neutrophils # 8.04 10^3/uL (1.8-7.7); Neutrophils % 79.6 %; Nucleated Red Blood Cells % 0 %; Platelet Count 247 10^3/cmm (130-400); Red Blood Count 3.89 10^6/uL (4.1-5.3); Red Cell Distribution Width 17.6 % (12.1-15.1); White Blood Count 10.1 10^3/uL (4.0-10.0)
--- NOTE | 2021-06-26 22:24 | ED.C_ITS ---
HPI - Psych General: Chief Complaint: Psychiatric Symptoms Stated Complaint: Hallucinating, SI Time Seen by Provider: 06/26/21 22:00 Source: patient Mode of arrival: ambulatory Limitations: no limitations History of Present Illness: HPI Narrative: 55-year-old female who states she has been suicidal states she started meth 6 hours and her severe depression she wanted to kill herself she voluntarily wants to get help. She denies any worsening or improving factors denies any specific plan. She did admit to methamphetamine use yesterday Associated symptoms: Reports depression and suicidal ideation Review of Systems Const: Denies: fever(s), chills, body aches or change in appetite Eyes: Denies: blurry vision or eye discomfort ENMT: Denies: throat pain or dental pain Card: Denies: chest pain Resp: Denies: dyspnea GI: Denies: abdominal pain, nausea, vomiting or diarrhea : Denies: dysuria Musc: Denies: neck pain or back pain Skin/Breast: Denies: rash Neuro: Denies: headache(s) Psych: Reports: depression and suicidal ideation Randal/Lymph: Denies: easy bruising All/Imm: Denies: urticaria PFSH ED PFSH: Medical History (Updated 06/26/21 @ 22:59 by Adrien Echevarria MD) Acute anxiety GERD (gastroesophageal reflux disease) History of suicidal ideation Microcytic anemia Schizophrenia Surgical History H/O tubal ligation S/P ORIF (open reduction internal fixation) fracture Family History Father Colon cancer Social History Smoking and tobacco status: current every day smoker Female Reproductive History: Date of last menstrual period: 09/16/17 Physical Exam Const: COMMON NORMALS: no acute distress, patient oriented x3 and healthy appearing HENMT: COMMON NORMALS: normocephalic and atraumatic HEAD & SCALP: normocephalic and atraumatic Eye: COMMON NORMALS: Equal, round and reactive pupils present and EOMs intact bilaterally PUPIL: Yes Equal, round and reactive pupils present Neck/C-Spine: COMMON NORMALS: full ROM and supple Chest: COMMONS NORMALS: normal inspection of the chest and normal palpation of entire chest wall Resp: COMMON NORMALS: normal respiratory effort, No retractions, No use of accessory muscles and clear to auscultation bilaterally AUSCULTATION: clear to auscultation bilaterally Cardio: COMMON NORMALS: regular rate, regular rhythm and No murmurs present (Cardio) RATE: regular rate RHYTHM: regular rhythm GI: COMMON NORMALS: Normal to inspection, nondistended, normoactive bowel sounds present, Soft to palpation, non-tender and no masses PALPATION: Yes Soft to palpation Extremity: COMMON NORMALS: normal to inspection and full ROM Neuro: COMMON NORMALS: patient oriented x3, moves all extremities and no focal motor deficits Psych: COMMON NORMALS: mental status grossly normal, Normal thought process present and cooperative THOUGHT PROCESS: Normal thought process present Skin: COMMON NORMALS: no rashes or lesions noted and no wounds GENERAL SKIN EXAM: no rashes or lesions noted Course Vital Signs: Vital signs: Vital Signs Temperature 98.4 F 06/26/21 23:03 Pulse Rate 103 H 06/26/21 23:03 Respiratory Rate 20 H 06/26/21 23:03 Blood Pressure 122/86 06/26/21 23:03 Pulse Oximetry 94 06/26/21 23:03 MDM - Psych MDM Narrative: Medical decision making narrative: Patient presents here with methamphetamine abuse and depression spoke to psychiatrist will admit the psychiatric unit patient is medically cleared. Lab Data: Labs: Lab Results 06/26/21 06/26/21 06/26/21 22:10 22:10 22:10 WBC 10.1 10^3/uL H 10 ^3/uL (4.0-10.0) RBC 3.89 10^6/uL L 10 ^6/uL (4.1-5.3) Hgb 9.2 g/dL L g/dL (11.5-15.3) Hct 29.6 % L % (37.0-47.0) MCV 76.1 fl L fl (81-99) MCH 23.7 pg L pg (28.0-34.0) MCHC 31.1 g/dL g/dL (30.0-36.0) RDW 17.6 % H % (12.1-15.1) Plt Count 247 10^3/cmm 10^3 /cmm (130-400) MPV 9.9 fL fL (7.4-10.4) Neut % (Auto) 79.6 % % Lymph % (Auto) 11.1 % % [place] % (Auto) 7.3 % % Eos % (Auto) 0.6 % % Baso % (Auto) 0.9 % % Neut # (Auto) 8.04 10^3/uL H 10 ^3/uL (1.8-7.7) Lymph # (Auto) 1.1 10^3/uL 10^3/ uL (0.8-4.8) [place] # (Auto) 0.7 10^3/uL 10^3/ uL (0.2-0.9) Eos # (Auto) 0.1 10^3/uL 10^3/ uL (0.0-0.8) Baso # (Auto) 0.1 10^3/uL 10^3/ uL (0.0-0.1) Nucleated RBC % (a uto) 0 % % Nucleated RBCs # 0.0 /100WBC /100W BC Sodium 139 mmol/L mmol/L (136-145) Potassium 3.9 mmol/L mmol/L (3.5-5.1) Chloride 102 mmol/L mmol/L (98-107) Carbon Dioxide 24 mmol/L mmol/L (22-29) Anion Gap 16.9 (5-19) BUN 13 mg/dL mg/dL (6-20) Creatinine 0.8 mg/dL mg/dL (0.5-0.9) GFR Calculation 74.2 mL/min L mL/ min (90-130) Glucose 90 mg/dL mg/dL (65-115) Calculated Osmolal ity 288 mOsm/kg mOsm/ kg (285-295) Calcium 9.0 mg/dL mg/dL (8.5-10.5) Total Bilirubin 1.0 mg/dL mg/dL (0.15-1.2) AST 23 U/L U/L (0-32) ALT 12 U/L U/L (0-33) Alkaline Phosphata se 52 IU/L IU/L (35-105) Troponin T Baselin e Cancelled Total Protein 7.4 g/dL g/dL (6.6-8.7) Albumin 4.3 g/dL g/dL (3.5-5.2) Globulin 3.1 g/dL g/dL (1.3-4.6) Salicylates Acetaminophen Ethyl Alcohol 06/26/21 22:10 WBC RBC Hgb Hct MCV MCH MCHC RDW Plt Count MPV Neut % (Auto) Lymph % (Auto) [place] % (Auto) Eos % (Auto) Baso % (Auto) Neut # (Auto) Lymph # (Auto) [place] # (Auto) Eos # (Auto) Baso # (Auto) Nucleated RBC % (a uto) Nucleated RBCs # Sodium Potassium Chloride Carbon Dioxide Anion Gap BUN Creatinine GFR Calculation Glucose Calculated Osmolal ity Calcium Total Bilirubin AST ALT Alkaline Phosphata se Troponin T Baselin e Total Protein Albumin Globulin Salicylates < 0.3 mg/dL L mg/ dL (3-10) Acetaminophen < 5.0 ug/mL L ug/ mL (10-30) Ethyl Alcohol < 10 mg/dL mg/dL (0-10) Discharge Plan Discharge Patient Disposition: Admitted As Inpatient Admit Provider: Mariano Granda Clinical Impression: Methamphetamine abuse, Suicidal ideation Condition: Stable Coding Level of Care Code ED Electrical Engineering Technologist for Chey Fwd Exam Comprehensive
[2021-06-26] MEDS: LORazepam 2 mg/mL INJ 1 mL IM (22:27)
[2021-06-26] MEDS: haloperidol inj 5 mg/mL INJ 1 mL IM (22:27)
[2021-06-26 22:39] LABS: Alanine Aminotransferase 12 U/L (0-33); Albumin Level 4.3 g/dL (3.5-5.2); Alkaline Phosphatase 52 IU/L (35-105); Anion Gap 16.9 (5-19); Aspartate Amino Transferase 23 U/L (0-32); Blood Urea Nitrogen 13 mg/dL (6-20); Carbon Dioxide 24 mmol/L (22-29); Chloride 102 mmol/L (98-107); Globulin 3.1 g/dL (1.3-4.6); Glomerular Filtration Rate 74.2 mL/min (90-130); Glucose 90 mg/dL (65-115); Osmolality Calculated 288 mOsm/kg (285-295); Potassium 3.9 mmol/L (3.5-5.1); Sodium 139 mmol/L (136-145); Total Protein 7.4 g/dL (6.6-8.7)
[2021-06-26 22:55] LABS: Acetaminophen < 5.0 ug/mL (10-30); Alcohol Level < 10 mg/dL (0-10); Salicylate < 0.3 mg/dL (3-10)
[2021-06-26 23:03] VITALS: BP 122/86; PULSE 103; RESP 20; TEMP 36.9; O2SAT 94
[2021-06-26 23:55] VITALS: BP 122/86; PULSE 103; RESP 20; TEMP 36.9; O2SAT 94
--- NOTE | 2021-06-27 02:56 | PC.ADMIT ---
[address] Admission Note: The patient,Elizabeth Donaldson,55 y/o, was given written information regarding hospital policies, unit procedures and contact persons. Patient's smoking status: current every day smoker. Vital Signs - 8 hr 06/26/21 23:03 06/26/21 23:55 Temperature 98.4 F 98.4 F Pulse Rate 103 H Pulse Rate [Left Brachial] 103 H Respiratory Rate 20 H 20 H Blood Pressure 122/86 Blood Pressure [Left Arm] 122/86 Pulse Oximetry 94 94 55-year-old female who states she has been suicidal states she started meth 6 hours and her severe depression she wanted to kill herself she voluntarily wants to get help. She denies any worsening or improving factors denies any specific plan. She did admit to methamphetamine use yesterday Associated symptoms: Reports depression and suicidal ideation. Patient arrives on unit disoriented and poor historian. Unable to complete full assessment due to patient?s loc. Pt is alert to self, thinks [place] is the President of the [place] and does not know what city or State she is currently in. Skin assessment is unremarkable. Pt changed into cotton scrubs and went straight to bed singing. Patient is able to follow most commands. Will attempt to re-assess when she is more alert. Patient did report that she has been ? doing meth.? Will continue to monitor and follow plan of care. Q 15 min safety checks per protocol.
[2021-06-27 06:00] VITALS: RESP 16
[2021-06-27] MEDS: ziprasidone hcl 40 mg Capsule PO ×2 (09:37→18:27)
[2021-06-27] MEDS: fluoxetine 20 mg Capsule 40 MG PO (09:37)
[2021-06-27] MEDS: diclofenac 75 mg DR Tablet PO ×2 (09:37→18:26)
[2021-06-27] MEDS: famotidine 20 mg Tablet PO ×2 (09:37→18:27)
[2021-06-27] MEDS: benztropine 1 mg Tablet 0.5 MG PO ×2 (09:38→18:27)
[2021-06-27] MEDS: amoxicillin 500 mg Capsule PO ×3 (09:38→18:27)
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
--- NOTE | 2021-06-27 12:11 | NPU.GN ---
[facility] Unit Group Topic:Meditation/ Depression Candy General Mood of Group: Elizabeth did not attend group today as she wanted to sleep.
[2021-06-27 14:00] VITALS: BP 107/68; PULSE 74; RESP 20; TEMP 36.6; O2SAT 94
[2021-06-27 21:43] VITALS: RESP 18
[2021-06-28 06:00] VITALS: BP 120/74; PULSE 82; RESP 18; TEMP 36.4; O2SAT 98
[2021-06-28] MEDS: amoxicillin 500 mg Capsule PO ×3 (10:28→21:00)
[2021-06-28] MEDS: diclofenac 75 mg DR Tablet PO ×2 (10:28→17:57)
[2021-06-28] MEDS: ziprasidone hcl 40 mg Capsule PO ×2 (10:29→17:58)
[2021-06-28] MEDS: fluoxetine 20 mg Capsule 40 MG PO (10:29)
[2021-06-28] MEDS: famotidine 20 mg Tablet PO ×2 (10:29→17:57)
[2021-06-28] MEDS: benztropine 1 mg Tablet 0.5 MG PO ×2 (10:30→17:57)
--- NOTE | 2021-06-28 11:22 | P.NPUPN_ITS ---
Subjective NPU Subjective: Interval history: Elizabeth presents today reporting that she is tolerating the increase in her Geodon just fine. She still endorsing depression but is less psychomotor activated. We discussed the risks, benefits and alternatives of ncreasing her Prozac today and she understood and agreed to proceed as is documented in his note. She is working with the treatment team about possibilities for addressing her recovery. She reports he is eating okay and sleeping better. Mental Status Exam MSE Comments: This is a well-nourished, well-developed white female looking older than her stated age with adequate eye contact in hospital scrubs somewhat disheveled. No abnormal movements except for mild psychomotor retardation. Cooperative exam in mild distress. Speech was decreased rate and normal volume. Mood described as depressed affect congruent. Thought process organized. Thought content: Patient denied current suicidal or homicidal ideation, there was paranoia reported or and noted, she endorsed auditory or visual hallucinations. Attention and concentration were intact and memory appeared reliable but none were formally tested. She is alert and oriented x3. Insight and judgment are limited and impulse control is impaired. Vitals/I&O/Wt Last Vital Signs Temp 97.6 F 06/28/21 06:00 Pulse 82 06/28/21 06:00 Resp 18 06/28/21 06:00 BP 120/74 06/28/21 06:00 Pulse Ox 98 06/28/21 06:00 Weight last 48 hrs Weight 81.827 kg Data NPU : 06/26/21 22:10 06/26/21 22:10 A&P Additional A&P Information (1) Acute psychosis: (2) Suicidal ideation: (3) Chronic schizophrenia with acute exacerbation: (4) Methamphetamine abuse: (5) Methamphetamine-induced psychotic disorder: This is a 54-year-old white female with a long history of mental health issues, addiction and now likely methamphetamine induced psychosis which led to dangerous behavior who presents after being admitted to the ICU secondary to her psychosis. 1. Continue current medication. We will increase Prozac to 60 mg p.o. daily and she is tolerating the Geodon 60 mg p.o. twice daily with meals that was changed on 06/27/2021. 2. Continue every 15 minute checks for safety. 3. Encourage individual, group and milieu therapy. 4. Encourage sober living treatment at the highest level of care to which she is willing to commit. Involuntary Hold Information 96 Hour Hold: 96 Hour Involuntary Admission: No 96 Hour Hold Ending Date: 11/07/20 96 Hour Hold Ending Time: 02:00 Attestations NPU Medical Necessity Statement*: Inpatient hospitalization is medically necessary and the clinically appropriate intervention at this time. We will monitor medications and make changes as indicated. Likely length of stay 2-4 days. Coding Level of Care Code Acute Attraction Attendant for Chey Navarro
--- NOTE | 2021-06-28 13:53 | NPU.GN ---
[facility] Unit Group Topic:Dice Breaker Psych Education General Mood of Group: Elizabeth did not attend group this morning he wanted to sleep. Elizabeth did speak with this screenplay writer after group about [facility] services. Elizabeth denies having a mental health disorder or any other issues, or using. Elizabeth stated that she was only there to prove to her grandfather that she was fine so she could get permission to see her children. Elizabeth denies signing any papers to be there. That someone else signed the papers because it was not her. This screenplay writer tried to explain to this patient 96 hr hold and 21 day hold with weekends and holidays and explained that it all depends on how well she is doing as far as when the treatment team and doctor feels that she is ready for discharge. Elizabeth was not happy and still seemed confused.
[2021-06-28 14:00] VITALS: BP 117/61; PULSE 87; RESP 20; TEMP 36.6; O2SAT 94
[2021-06-28] MEDS: acetaminophen 325 mg Tablet 650 MG PO (21:06)
[2021-06-28 22:00] VITALS: BP 99/65; PULSE 67; RESP 17; TEMP 36.5; O2SAT 97
--- NOTE | 2021-06-29 02:14 | PC.NURSE ---
Upon assessment patient standing in hallway waiting for medications. Patient's skin was clammy and she was a little pale. This Nurse asked if how she was feeling and she stated a little dizzy. This Nurse walked patient back to her bed and had her lie down. V/S were taken with pt lying then standing. Lying down was 99/65 and standing was 87/62. Patient states she has always had problems with her bp dropping when she stands up. Patient also states she has only urinated x 1 today. Patient encouraged to drink more water and educated regarding dehydration as well as her fall risk with the decrease in bp. Patient provided with extra water. Will continue to monitor and follow plan of care. Q 15 min safety checks per protocol.
[2021-06-29 06:00] VITALS: BP 117/63; PULSE 55; RESP 17; TEMP 36.6; O2SAT 97
[2021-06-29] MEDS: diclofenac 75 mg DR Tablet PO ×2 (10:13→19:23)
[2021-06-29] MEDS: ziprasidone hcl 40 mg Capsule PO ×2 (10:13→17:39)
[2021-06-29] MEDS: fluoxetine 20 mg Capsule 60 MG PO (10:14)
[2021-06-29] MEDS: amoxicillin 500 mg Capsule PO ×3 (10:15→20:34)
[2021-06-29] MEDS: famotidine 20 mg Tablet PO ×2 (10:15→17:39)
[2021-06-29] MEDS: benztropine 1 mg Tablet 0.5 MG PO ×2 (10:16→17:39)
[2021-06-29 14:00] VITALS: BP 117/63; PULSE 55; RESP 17; TEMP 36.6; O2SAT 97
--- NOTE | 2021-06-29 16:49 | P.NPUPN_ITS ---
Subjective NPU Subjective: Interval history: Patient presents today reporting that she is starting to feel significantly better. She reports that the medication has been effective and that she is also sleeping better. We began to discuss the prospect of discharge. She reports that she is spoken with her family and she is going to assist one of her grandchildren which will give her some additional things to do with her time. She denies any significant symptoms to be addressed at this time and we discussed likelihood of discharge tomorrow. Mental Status Exam MSE Comments: This is a well-nourished, well-developed white female looking older than her stated age with adequate eye contact in hospital scrubs with appropriate grooming. No abnormal movements. Cooperative exam in no acute distress. Speech was more normal rate and normal volume. Mood described as better affect congruent. Thought process organized. Thought content: Patient denied current suicidal or homicidal ideation, there were no delusions reported or noted, she denied auditory or visual hallucinations. Attention and concentration were intact and memory appeared reliable but none were formally tested. She is alert and oriented x3. Insight and judgment are improving and impulse control is limited, but improving. Vitals/I&O/Wt Last Vital Signs Temp 97.9 F 06/29/21 14:00 Pulse 55 L 06/29/21 14:00 Resp 17 06/29/21 14:00 BP 117/63 06/29/21 14:00 Pulse Ox 97 06/29/21 14:00 Data NPU : 06/26/21 22:10 06/26/21 22:10 A&P Additional A&P Information 1) Acute psychosis: (2) Suicidal ideation: (3) Chronic schizophrenia with acute exacerbation: (4) Methamphetamine abuse: (5) Methamphetamine-induced psychotic disorder: This is a 54-year-old white female with a long history of mental health issues, addiction and now likely methamphetamine induced psychosis which led to dangerous behavior who presents after being admitted to the NPU secondary to her psychosis. 1. Continue current medication. We will increase Prozac to 60 mg p.o. daily 06/28/21 and she is tolerating the Geodon 60 mg p.o. twice daily with meals that was changed on 06/27/2021. 2. Continue every 15 minute checks for safety. 3. Encourage individual, group and milieu therapy. 4. Encourage sober living treatment at the highest level of care to which she is willing to commit. Involuntary Hold Information 96 Hour Hold: 96 Hour Involuntary Admission: No 96 Hour Hold Ending Date: 11/07/20 96 Hour Hold Ending Time: 02:00 Attestations NPU Medical Necessity Statement*: Inpatient hospitalization is medically necessary and the clinically appropriate intervention at this time. We will monitor medications and make changes as indicated. Likely length of stay 1-3 days. Likely discharge tomorrow. Coding Level of Care Code Acute Chemical Dependency Therapist for Chey Navarro
[2021-06-29] MEDS: acetaminophen 325 mg Tablet 650 MG PO (17:38)
[2021-06-29 22:00] VITALS: BP 102/68; PULSE 67; RESP 17; TEMP 36.5; O2SAT 96
[2021-06-30 06:00] VITALS: BP 118/73; PULSE 76; RESP 16; TEMP 36.6; O2SAT 100
[2021-06-30] MEDS: amoxicillin 500 mg Capsule PO ×2 (08:23→14:30)
[2021-06-30] MEDS: diclofenac 75 mg DR Tablet PO (08:23)
[2021-06-30] MEDS: fluoxetine 20 mg Capsule 60 MG PO (08:24)
[2021-06-30] MEDS: famotidine 20 mg Tablet PO (08:24)
[2021-06-30] MEDS: benztropine 1 mg Tablet 0.5 MG PO (08:24)
[2021-06-30] MEDS: ziprasidone hcl 40 mg Capsule PO (08:24)
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
[2021-06-30 11:08] VITALS: BP 130/86; PULSE 87; RESP 18; TEMP 36.6; O2SAT 95
== END 2021-06-30 15:35 | disposition home or self-care (01) | DRG 897 ==
LOC: ER 23:07 → NP 06-27 07:05
PROVIDERS: Admitting Provider Psychiatry & Neurology Psychiatry; Emergency Provider Emergency Medicine; PCP Family Medicine; Visit Provider Psychiatry & Neurology Psychiatry
DX: F15.159 Other stimulant abuse with stimulant-induced psychotic disorder, unspecified (principal); R45.851 Suicidal ideations; F20.9 Schizophrenia, unspecified; F15.10 Other stimulant abuse, uncomplicated; F41.9 Anxiety disorder, unspecified; K21.9 Gastro-esophageal reflux disease without esophagitis; D50.9 Iron deficiency anemia, unspecified; F17.210 Nicotine dependence, cigarettes, uncomplicated
CPT/HCPCS: 71045; 80053; 80307; 85025; 96372; 97165; 99285; J1630; J2060

== ENCOUNTER 2023-01-21 21:18 | Inpatient (IN) | payer OTHER, MEDICAID, SELFPAY ==
[2023-01-21 21:21] VITALS: BP 142/71; PULSE 121; RESP 18; TEMP 36.9; O2SAT 97; BMI 26.6
[2023-01-21 21:28] VITALS: RESP 20
--- NOTE | 2023-01-21 21:33 | W.ED.PSYCHS ---
HPI - Psych General: Chief Complaint: Psychiatric Symptoms Stated Complaint: SOB Time Seen by Provider: 01/21/23 21:33 History of Present Illness: Ms. Gonzales is a 57-year-old lady with history of schizophrenia and anxiety presenting to the emergency department for psychiatric evaluation. She appears quite anxious and fidgety. She has a history of recent suicidal ideation after an argument with significant other took some amount of her Klonopin. She reports that this was a few days ago. She currently feels overwhelmed and anxious and feels like she is in hell . Otherwise denies medical concerns. No other specific changes in health, exacerbating, or alleviating factors identified. History of same: Yes Associated psychiatric symptoms: depression, suicidal ideation and other Review of Systems General: Reports: 10 or more systems reviewed and unremarkable except in HPI and below PFSH ED PFSH: Medical History (Updated 01/28/23 @ 00:01 by LEX Clements) Acute anxiety GERD (gastroesophageal reflux disease) History of suicidal ideation Ketamine use disorder, moderate, dependence Microcytic anemia Schizophrenia Surgical History H/O tubal ligation S/P ORIF (open reduction internal fixation) fracture Family History Father Colon cancer Social History Smoking and tobacco status: current every day smoker Physical Exam Const: COMMON NORMALS: alert GENERAL APPEARANCE: cooperative and well developed HENMT: COMMON NORMALS: normocephalic and atraumatic HEAD & SCALP: normocephalic and atraumatic THROAT: posterior oropharynx normal Eye: COMMON NORMALS: conjunctivae normal CONJUNCTIVA: Yes conjunctivae normal SCLERA: sclerae normal Neck/C-Spine: COMMON NORMALS: supple GENERAL: Yes trachea midline Resp: COMMON NORMALS: normal respiratory effort EFFORT & INSPECTION: Yes able to speak in complete sentences Cardio: COMMON NORMALS: regular rate and regular rhythm RATE: regular rate RHYTHM: regular rhythm GI: COMMON NORMALS: Soft to palpation PALPATION: Yes Soft to palpation and No Tenderness to palpation present (GI) Extremity: GENERAL: Yes normal exam except as noted and No edema Neuro: COMMON NORMALS: moves all extremities SENSORIUM/ORIENTATION: Yes alert and No Orientation impaired Psych: MOOD & AFFECT: Yes depressed mood and Yes anxious Course Vital Signs: Vital signs: Vital Signs Temperature 98.2 F 01/27/23 15:34 Pulse Rate 89 01/27/23 15:34 Respiratory Rate 12 01/27/23 15:34 Blood Pressure 108/75 01/27/23 15:34 Pulse Oximetry 97 01/27/23 15:34 Oxygen Delivery Me thod Room Air 01/27/23 13:36 MDM - Psych Medical Decision Making 57-year-old lady presenting to the emergency department for psychiatric evaluation. Exam as above. EKG notable for sinus rhythm with normal axis and intervals, nonspecific segment abnormalities. Labs notable for no leukocytosis, microcytic anemia with hemoglobin of 5.6. No evidence or reported hemorrhage on exam. Metabolic panel without significant derangement. Toxic ingestions positive for UDS amphetamine screen and THC screen. Patient consented for blood transfusion and transfusion ordered. Patient requires inpatient psychiatric management however given hemoglobin will be admitted for medical stabilization first. The results of ED evaluation were discussed with the patient including plan for admission due to requirement for level of care not available if discharged to prevent significant worsening/deterioration. Patient agreeable with plan. Discussed with hospitalist service who was agreeable to admit patient. Medical Records I reviewed the patient's medical records. Lab Data I reviewed the patient's lab results. 01/23/23 09:40 01/22/23 11:43 Laboratory Results WBC 7.7 10^3/uL (4.0-10.0) 01/21/23 22:25 RBC 3.55 10^6/uL (4.1-5.3) L 01/21/23 22:25 Hgb 5.6 g/dL (11.5-15.3) L* 01/21/23 22:25 Hct 21.0 % (37.0-47.0) L 01/21/23 22:25 MCV 59.2 fl (81-99) L 01/21/23 22:25 MCH 15.8 pg (28.0-34.0) L 01/21/23 22:25 MCHC 26.7 g/dL (30.0-36.0) L 01/21/23 22:25 RDW 20.3 % (12.1-15.1) H 01/21/23 22:25 Plt Count 271 10^3/cmm (130-400) 01/21/23 22: MPV 9.1 fL (7.4-10.4) 01/21/23 22:25 Neut % (Auto) 84.7 % 01/21/23 22:25 Lymph % (Auto) 9.8 % 01/21/23 22: [place] % (Auto) 3.9 % 01/21/23 22: Eos % (Auto) 0.4 % 01/21/23 22: Baso % (Auto) 0.5 % 01/21/23 22: Reticulocyte % (Auto) 1.9 % (0.5-2.0) 01/21/23: Neut # (Auto) 6.51 10^3/uL (1.8-7.7) 01/21/23 22: Lymph # (Auto) 0.8 10^3/uL (0.8-4.8) 01/21/23 22: [place] # (Auto) 0.3 10^3/uL (0.2-0.9) 01/21/23 22:25 Eos # (Auto) 0.0 10^3/uL (0.0-0.8) 01/21/23 22:25 Baso # (Auto) 0.0 10^3/uL (0.0-0.1) 01/21/23 22: Nucleated RBC % (auto) 0 % 01/21/23 22: Nucleated RBCs # 0.0 /100WBC 01/21/23 22:25 Sodium 134 mmol/L (136-145) L 01/21/23 22:25 Potassium 4.0 mmol/L (3.5-5.1) 01/21/23 22:25 Chloride 99 mmol/L (98-107) 01/21/23 22:25 Carbon Dioxide 23 mmol/L (22-29) 01/21/23 22: Anion Gap 16.0 (5-19) 01/21/23 22:25 BUN 10 mg/dL (6-20) 01/21/23 22: Creatinine 1.0 mg/dL (0.5-0.9) H 01/21/23 22:25 GFR Calculation 56.9 mL/min (90-130) L 01/21/23 22:25 Glucose 102 mg/dL (65-115) 01/21/23 22:25 Calculated Osmolality 277 mOsm/kg (285-295) L 01/21/23 22:25 Calcium 8.7 mg/dL (8.5-10.5) 01/21/23 22:25 Iron 12 ug/dL (37-145) L 01/21/23 22:25 TIBC 458 mcg/dl 01/21/23 22:25 % Saturation 2.6 % (20-50) L 01/21/23 22:25 Unsat Iron Binding 446 ug/dL (112-347) H 01/21/23 22:25 Transferrin 379 mg/dL (200-360) H 01/21/23 22:25 Ferritin 8 ng/mL (15-150) L 01/21/23 22:25 Total Bilirubin 0.6 mg/dL (0.15-1.2) 01/21/23 22:25 AST 15 U/L (0-32) 01/21/23 22:25 ALT 8 U/L (0-33) 01/21/23 22:25 Alkaline Phosphatase 55 U/L (35-105) 01/21/23 22:25 Creatine Kinase 95 U/L (26-192) 01/21/23 22:25 Total Protein 7.2 g/dL (6.6-8.7) 01/21/23 22:25 Albumin 4.0 g/dL (3.5-5.2) 01/21/23 22:25 Globulin 3.2 g/dL (1.3-4.6) 01/21/23 22:25 Vitamin B12 309 pg/mL (232-1245) 01/21/23 22:25 Folate 9.6 ng/mL (4.8-37.3) 01/21/23 22:25 TSH 2.19 uIU/mL (0.27-4.20) 01/21/23 22:25 Salicylates < 0.3 mg/dL (3-10) L 01/21/23 22:25 Urine Opiates Screen Negative ng/mL (Negative) 01/21/23 21:46 Acetaminophen < 5.0 ug/mL (10-30) L 01/21/23 22:25 Ur Barbiturates Screen Negative ng/mL (Negative) 01/21/23 21:46 Ur Phencyclidine Scrn Negative ng/mL (Negative) 01/21/23 21:46 Ur Amphetamines Screen Positive ng/mL (Negative) H 01/21/23 21:46 U Benzodiazepines Scrn Negative ng/mL (Negative) 01/21/23 21:46 Urine Cocaine Screen Negative ng/mL (Negative) 01/21/23 21:46 U Marijuana (THC) Screen Positive ng/mL (Negative) H 01/21/23 21:46 Ethyl Alcohol < 10 mg/dL (0-10) 01/21/23 22:25 Blood Type A Negative 01/21/23 22:54 Rho(D) Type Negative 01/21/23 22:54 Antibody Screen Negative 01/21/23 22:54 Crossmatch See Detail 01/21/23 22:54 Discharge Plan Discharge Patient Disposition: Admitted As Inpatient Admit Provider: Madina Deleon Clinical Impression: Acute psychosis, Acute on chronic anemia, Methamphetamine abuse Condition: Stable Discharge Diet: Advance as tolerated Discharge Activity: Resume usual activity Coding Level of Care Code ED Behavioral Health Professional for Chey Navarro
--- NOTE | 2023-01-21 21:34 | ECG_ITS ---
[facility] Test Date: 2023-01-21 Pat Name: Elizabeth Donaldson Department: Room: Gender: Female Food Consultant: : 1965 Requested By: Rodríguez Sam Order Number: [id number] Windy MD: Leilani Neil M.D. Measurements Intervals [place] Rate: 97 P: 38 LA: 170 QRS: -3 QRSD: 101 T: 22 QT: 363 QTc: 462 Interpretive Statements SINUS RHYTHM Compared to ECG 11/01/2020 03:33:25 ST (T wave) deviation no longer present Electronically Signed On 01-22-2023 7:19:21 CDT by Leilani Neil M.D. [email or web address]
[2023-01-21] MEDS: LORazepam 0.5 mg Tablet PO (21:58)
[2023-01-21 22:09] LABS: Amphetamines Screen Urine Positive (Negative); Barbiturates Screen Urine Negative (Negative); Benzodiazepines Screen Urine Negative (Negative); Cocaine Screen Urine Negative (Negative); Opiate Screen Urine Negative (Negative); PCP Screen Urine Negative (Negative); THC Screen Urine Positive (Negative)
[2023-01-21 22:31] LABS: Basophils % 0.5 %; Eosinophils % 0.4 %; Lymphocytes # 0.8 10^3/uL (0.8-4.8); Lymphocytes % 9.8 %; Mean Corpuscular HGB Conc 26.7 g/dL (30.0-36.0); Mean Corpuscular Hemoglobin 15.8 pg (28.0-34.0); Mean Corpuscular Volume 59.2 fl (81-99); Mean Platelet Volume 9.1 fL (7.4-10.4); Monocytes # 0.3 10^3/uL (0.2-0.9); Monocytes % 3.9 %; Neutrophils # 6.51 10^3/uL (1.8-7.7); Neutrophils % 84.7 %; Nucleated Red Blood Cells % 0 %; Platelet Count 271 10^3/cmm (130-400); Red Blood Count 3.55 10^6/uL (4.1-5.3); Red Cell Distribution Width 20.3 % (12.1-15.1); White Blood Count 7.7 10^3/uL (4.0-10.0)
[2023-01-21 22:43] LABS: Hemoglobin 5.6 g/dL (11.5-15.3)
[2023-01-21 22:57] LABS: Creatine Phosphokinase 95 U/L (26-192)
[2023-01-21 23:00] LABS: Alanine Aminotransferase 8 U/L (0-33); Alkaline Phosphatase 55 U/L (35-105); Aspartate Amino Transferase 15 U/L (0-32); Blood Urea Nitrogen 10 mg/dL (6-20); Calcium 8.7 mg/dL (8.5-10.5); Carbon Dioxide 23 mmol/L (22-29); Chloride 99 mmol/L (98-107); Globulin 3.2 g/dL (1.3-4.6); Glomerular Filtration Rate 56.9 mL/min (90-130); Glucose 102 mg/dL (65-115); Osmolality Calculated 277 mOsm/kg (285-295); Sodium 134 mmol/L (136-145); Thyroid Stimulating Hormone 2.19 uIU/mL (0.27-4.20); Total Bilirubin 0.6 mg/dL (0.15-1.2); Total Protein 7.2 g/dL (6.6-8.7)
[2023-01-21 23:01] LABS: Acetaminophen < 5.0 ug/mL (10-30); Alcohol Level < 10 mg/dL (0-10); Salicylate < 0.3 mg/dL (3-10)
[2023-01-21 23:09] LABS: Reticulocyte % 1.9 % (0.5-2.0)
[2023-01-21 23:13] VITALS: BP 141/89; PULSE 108; RESP 20; O2SAT 98
[2023-01-21] MEDS: pantoprazole 40 mg SDV 80 MG IVP (23:45)
[2023-01-21] MEDS: sodium chloride 0.9% 100 mL Bag 50 ML IV (23:51)
[2023-01-21 23:58] VITALS: BP 132/82; PULSE 105; RESP 16; TEMP 36.8; O2SAT 97
[2023-01-22] VITALS (21 sets, daily range): BP systolic 104–137; BP diastolic 62–92; PULSE 74–98; RESP 15–96; TEMP 36.6–37; O2SAT 93–98; BMI 28.1
--- NOTE | 2023-01-22 00:50 | PC.NURSE ---
96 Hour Hold Patient Rights have been read to patient with a copy of the same given to her.
[2023-01-22 01:20] LABS: Ferritin 8 ng/mL (15-150); Iron 12 ug/dL (37-145); Percent Saturation 2.6 % (20-50); Total Iron Binding Capacity 458 mcg/dl; Transferrin 379 mg/dL (200-360); Unsaturated Iron Binding 446 ug/dL (112-347)
--- NOTE | 2023-01-22 02:27 | PC.NURSE ---
Addendum entered by Teresa Savage RN 01/22/23 03:11: Notified that patient received 0.5 mg Ativan in ED. Xanax x1 ordered. Patient also asking for nicotine patch. States she smokes 1/[address] Deleon notified and nicotine patch ordered. Original Note: Patient asking for something for anxiety. Dr. Deleon notified.
[2023-01-22] MEDS: sodium chloride 0.9% 100 mL Bag 50 ML IV (02:30)
--- NOTE | 2023-01-22 02:50 | P.HP_ITS ---
Providers/Chief Complaint Admitting Physician: Madina Deleon MD Primary Care Provider: Ramin Angeles Chief Complaint: SOB\SI History of Present Illness Elizabeth Donaldson is a 57 year old female with a past medical history of hepatitis C unknown history of treatment, hypothyroidism, hyperlipidemia, history of drug abuse, anxiety and depression, history of schizophrenia, who presents to [facility] due to suicidal thoughts. She took a handful of tablets of Klonopin a few days ago, however none in the last 24 hours. She presents today requesting a psychiatric evaluation as she has been feeling extremely anxious again with thoughts of self-harm. Unable to tell me any specifics beyond this.'s psychiatry consult has been requested to the emergency room. Medicine team is consulted due to noted anemia with a hemoglobin of 5.6. She was previously also diagnosed with anemia in 2019 when she had presented here for suicidal attempt and acute psychosis. At that time she had evidence of severe iron deficiency She has received several blood transfusions in the past. She was recommended to undergo an age-appropriate colonoscopy, however this has not happened since then. Review of Systems General: Reports: 10 or more systems reviewed and unremarkable except in HPI and below Const: Denies: fever(s), chills or body aches Eyes: Denies: change in vision, blurry vision or photophobia ENMT: Reports: hoarseness; Denies: throat pain, enlarged tonsils, odynophagia or nasal congestion Card: Denies: chest pain, palpitations, irregular heart rhythm, edema, swelling of feet/ankles, lightheadedness, pre-syncope, dyspnea on exertion or orthopnea Resp: Denies: dyspnea, productive cough, non-productive cough, wheezing, stridor, pain on inspiration, change in phlegm color, hemoptysis or chest congestion GI: Denies: abdominal pain, nausea, vomiting, hematemesis, coffee ground emesis, dysphagia, heartburn, diarrhea, constipation, GI cramping, change in stool character, hematochezia or melena : Denies: flank pain, difficulty voiding, dysuria, urinary frequency, urinary urgency, urinary hesitancy or hematuria Musc: Denies: neck pain, back pain, extremity pain, joint swelling, joint warmth or deformity Neuro: Denies: headache(s), numbness in extremities, weakness in extremities, sensory changes, difficulty walking, frequent falls, dizziness, vertigo, behavioral changes, Slurred speech present or seizure-like activity Psych: Denies: anxiety, depression, suicidal ideation or homicidal ideation Endo: Denies: polyuria, polydipsia, tired all the time, cold intolerance or hot flashes Randal/Lymph: Denies: easy bruising or easy bleeding Medications/Allergies Home Medications Medication Instructions Recorded Confirmed Last Taken Type diclofenac sodium 75 mg 75 mg PO BID 30 days #60 tabs 12/27/19 01/22/23 2 Days Ago Rx tablet,delayed release ~01/20/23 omeprazole 20 mg capsule,delayed 20 mg PO DAILY 30 days #30 caps 12/27/19 01/22/23 2 Days Ago Rx release ~01/20/23 ziprasidone HCl 40 mg capsule 40 mg PO BID 30 days #60 caps 06/30/21 01/22/23 2 Days Ago Rx ~01/20/23 clonazepam 0.5 mg tablet (Klonopin) 0.5 mg PO TID PRN Anxiety 01/22/23 01/22/23 Unknown History famotidine 20 mg tablet 20 mg PO DAILY 01/22/23 01/22/23 2 Days Ago History ~01/20/23 fluoxetine 20 mg capsule 40 mg PO DAILY 01/22/23 01/22/23 2 Days Ago History ~01/20/23 Allergies Allergy/AdvReac Type Severity Reaction Status Date / Time No Known Allergies Allergy Verified 01/21/23 21:28 PFSH Acute PFSH: Medical History Acute anxiety GERD (gastroesophageal reflux disease) History of suicidal ideation Microcytic anemia Schizophrenia Surgical History H/O tubal ligation S/P ORIF (open reduction internal fixation) fracture Family History Father Colon cancer Social History Smoking and tobacco status: current every day smoker Vitals/I&O/Wt Last Vital Signs Temp 98.2 F 01/22/23 02:39 Pulse 85 01/22/23 02:39 Resp 15 01/22/23 02:24 BP 117/70 01/22/23 02:39 Pulse Ox 96 01/22/23 02:39 O2 Del Method Room Air 01/22/23 00:31 01/21/23 01/21/23 01/22/23 14:59 22:59 06:59 Intake Total 250 / 250 Balance 250 / 250 Weight last 48 hrs Weight 77.111 kg Physical Exam Narrative: General: No acute distress, AO x3 HEENT: PERRLA, pupils bilaterally equal and reactive, pallors not present Chest: Normal vesicular breath sounds, no added sounds, equal good air entry bilaterally CVS: S1-S2 regular, no murmurs, no tachycardia, no gallops, no rubs Abdomen: Soft, nontender, no organomegaly, bowel sounds present Neuro: No focal deficits, no facial deformity, AO x3, power 5/5 in all limbs Data 01/22/23 11:43 01/22/23 11:43 A&P Assessment and plan (1) Acute on chronic anemia: Acute on chronic anemia, hemoglobin currently at 5.6 Check iron, TIBC, ferritin B12 and folate levels. Check FOBT, she has never had an age-appropriate colonoscopy. Ordered for transfusion packed red blood cell from the emergency room which is currently running Check hemoglobin after transfusion No current signs of bleeding No complaints of anika hematemesis or melena. (2) Suicidal ideation: Psychiatry has service has been consulted. Patient has been placed on a 96-hour hold with one-to-one sitter. Attestations Medical Necessity Statement*: Anticipate greater than 2 midnight stay for anemia needing blood transfusion, psychiatry evaluation Coding Level of Care Code Acute Code for Chg Fwd Diagnoses Acute on chronic anemia D64.9 Suicidal ideation R45.851
[2023-01-22] MEDS: ALPRAZolam 0.5 mg Tablet 0.25 MG PO (02:55)
[2023-01-22] MEDS: acetaminophen 325 mg Tablet 650 MG PO (03:26)
[2023-01-22 03:56] LABS: Vitamin B12 309 pg/mL (232-1245)
[2023-01-22 03:57] LABS: Folate Level 9.6 ng/mL (4.8-37.3)
[2023-01-22 07:32] LABS: Hematocrit 27.6 % (37.0-47.0); Hemoglobin 7.8 g/dL (11.5-15.3)
[2023-01-22] MEDS: nicotine 14 mg Patch 1 PATCH TRANSDERMA (08:59)
[2023-01-22] MEDS: pantoprazole DR 40 mg Tablet PO ×2 (08:59→18:55)
[2023-01-22] MEDS: fluoxetine 20 mg Capsule 40 MG PO (08:59)
[2023-01-22] MEDS: ziprasidone hcl 40 mg Capsule PO ×2 (08:59→18:55)
[2023-01-22 11:51] LABS: Basophils # 0.1 10^3/uL (0.0-0.1); Basophils % 0.8 %; Eosinophils # 0.2 10^3/uL (0.0-0.8); Eosinophils % 2.4 %; Hematocrit 26.2 % (37.0-47.0); Hemoglobin 7.4 g/dL (11.5-15.3); Lymphocytes # 1.3 10^3/uL (0.8-4.8); Lymphocytes % 21.4 %; Mean Corpuscular HGB Conc 28.2 g/dL (30.0-36.0); Mean Corpuscular Volume 63.9 fl (81-99); Mean Platelet Volume 9.7 fL (7.4-10.4); Monocytes # 0.5 10^3/uL (0.2-0.9); Monocytes % 7.2 %; Neutrophils # 4.22 10^3/uL (1.8-7.7); Neutrophils % 67.6 %; Nucleated Red Blood Cells % 0.3 %; Platelet Count 236 10^3/cmm (130-400); Red Cell Distribution Width 25.3 % (12.1-15.1); White Blood Count 6.3 10^3/uL (4.0-10.0)
[2023-01-22 12:16] LABS: Alanine Aminotransferase 8 U/L (0-33); Albumin Level 3.7 g/dL (3.5-5.2); Alkaline Phosphatase 53 U/L (35-105); Anion Gap 14.1 (5-19); Aspartate Amino Transferase 14 U/L (0-32); Blood Urea Nitrogen 10 mg/dL (6-20); Calcium 8.4 mg/dL (8.5-10.5); Carbon Dioxide 23 mmol/L (22-29); Chloride 103 mmol/L (98-107); Glomerular Filtration Rate 73.7 mL/min (90-130); Glucose 106 mg/dL (65-115); Osmolality Calculated 281 mOsm/kg (285-295); Potassium 4.1 mmol/L (3.5-5.1); Sodium 136 mmol/L (136-145); Total Bilirubin 1.5 mg/dL (0.15-1.2); Total Protein 6.7 g/dL (6.6-8.7)
[2023-01-22 12:39] LABS: Thyroid Stimulating Hormone 1.38 uIU/mL (0.27-4.20)
[2023-01-22 13:18] LABS: Vitamin B12 284 pg/mL (232-1245)
--- NOTE | 2023-01-22 14:23 | W.PM.EVENTAC ---
Event Note Event Note: Admitted overnight. H&P and labs appreciated. Overnight received to do blood transfusion. Patient admitted for suicidal ideation. Sitter at bedside. On 96-hour hold. Repeat CBC, CMP today. Found to have severe iron deficiency anemia. Appreciate vitamin B12 folate levels. Hemoglobin stable can plan to transition to Neuropsych Unit on oral iron tablets. Stool for occult blood awaited. We will continue to monitor CBC daily for next couple of days. If remains stable can discharge home on oral iron supplementation with advised to follow-up with surgery as an outpatient for EGD and colonoscopy.
[2023-01-22] MEDS: cyanocobalamin 1,000 mcg/mL SDV 1000 MCG IM (16:48)
--- NOTE | 2023-01-22 18:27 | PC.NURSE ---
PT CAME TO OUR ED IN CRISIS, WITH SUICIDAL THOUGHTS. PT GRIFFITH SNOT HAVE A CURRENT PLAN. PT WAS TRANSFERRED FROM THE [facility] AFTER RECEIVING BLOOD TRANSFUSIONS DUE TO A LOW HEMAGLOBIN. UPON ADMIT TO OUR UNIT PT ADMITS TO RELAPSE OF METH USE IN SEPTEMBER. PT STATES THAT SHE HAD A MENTAL EPISODE DUE TO HER BLOOD BEING LOW PT STATED THAT THIS HAS HAPPENED BEFORE.
[2023-01-22] MEDS: iron complex forte Capsule 1 EACH PO (19:04)
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
[2023-01-23] VITALS: RESP 14
[2023-01-23 06:00] VITALS: RESP 16
[2023-01-23] MEDS: fluoxetine 20 mg Capsule 40 MG PO (08:41)
[2023-01-23] MEDS: iron complex forte Capsule 1 EACH PO ×2 (08:42→17:32)
[2023-01-23] MEDS: pantoprazole DR 40 mg Tablet PO ×2 (08:42→17:32)
[2023-01-23] MEDS: cyanocobalamin 1,000 mcg Tablet 500 MCG PO (08:42)
[2023-01-23] MEDS: ziprasidone hcl 40 mg Capsule PO ×2 (08:43→17:32)
[2023-01-23] MEDS: nicotine 14 mg Patch 1 PATCH TRANSDERMA (08:43)
[2023-01-23 09:51] LABS: Mean Corpuscular Hemoglobin 17.6 pg (28.0-34.0); Mean Platelet Volume 9.8 fL (7.4-10.4); Nucleated Red Blood Cells % 0 %
[2023-01-23 09:57] LABS: Basophils # 0.1 10^3/uL (0.0-0.1); Basophils % 0.9 %; Eosinophils # 0.4 10^3/uL (0.0-0.8); Eosinophils % 6.6 %; Hematocrit 30.7 % (37.0-47.0); Hemoglobin 8.2 g/dL (11.5-15.3); Lymphocytes # 1.1 10^3/uL (0.8-4.8); Lymphocytes % 21.3 %; Mean Corpuscular HGB Conc 26.7 g/dL (30.0-36.0); Mean Corpuscular Volume 65.7 fl (81-99); Monocytes # 0.3 10^3/uL (0.2-0.9); Monocytes % 5.3 %; Neutrophils # 3.46 10^3/uL (1.8-7.7); Neutrophils % 65.3 %; Platelet Count 266 10^3/cmm (130-400); Red Blood Count 4.67 10^6/uL (4.1-5.3); Red Cell Distribution Width 25.8 % (12.1-15.1); White Blood Count 5.3 10^3/uL (4.0-10.0)
--- NOTE | 2023-01-23 10:03 | PC.NURSE ---
LAB CAME TO DRAW BLOOD. PT DENIES SI/HI AND AVH AT THIS TIME. PT IS OBSERVED TO HAVE FLAT AFFECT AND IS OBSERVED TO BE VERY ANXIOUS, TAPPING FOOT AND LEG WHILE IN BED. PT DENIES ANXIETY AND DEPRESSION. REPORTS SHE SLEPT WELL LAST NIGHT. INSTRUCTED THAT STAFF NEEDED TO COLLECT AN OCCULT BLOOD STOOL. PT WAS GIVEN INSTRUCTIONS AND A HAT TO COMPLETE. PT STATES IT MIGHT BE AWHILE I'M NOT REGULAR. ALL QUESTIONS ANSWERED AND SUPPORT WAS VOICED.
[2023-01-23 10:09] LABS: Chol HDL Ratio 3.63 mg/dL (0.0-4.40); Cholesterol 185 mg/dL (0-200); HDL Cholesterol 51 mg/dL (60-100); LDL Cholesterol Calculated 117 mg/dL (50-129); Triglycerides 83 mg/dL (0-150); VLDL Cholestrol Calculation 17 mg/dL (0-30)
--- NOTE | 2023-01-23 10:12 | W.PM.NPUPNS ---
Subjective NPU Subjective: Patient presented today reporting that she is doing okay. She is tolerating her medication without any issues. We spent time talking about the challenge of her beating her methamphetamine addiction. She was somewhat somber and her thoughts and behaviors mostly secondary to wanting to do better but being frustrated with her current behavioral output. She really did not have an answer for how she was going to change her current trajectory. Mental Status Exam MSE Comments: This is a well-nourished, well-developed white female looking older than her stated age with adequate eye contact in hospital gown looking somewhat disheveled. Absent dentition. No abnormal movements except for significant psychomotor agitation tweaking . Cooperative exam in mild to moderate distress. Speech was increased rate and normal volume. Mood described as frustrated that she is still here as far as in her addiction, affect congruent. Thought process organized. Thought content: Patient denied current suicidal or homicidal ideation, there was paranoia reported and some noted, she denied auditory or visual hallucinations. Attention and concentration were intact and memory appeared reliable but none were formally tested. She is alert and oriented x3. Insight and judgment are limited and impulse control is impaired. Vitals/I&O/Wt Last Vital Signs Temp 97.9 F 01/22/23 22:15 Pulse 85 01/22/23 22:15 Resp 16 01/23/23 06:00 BP 114/65 01/22/23 22:15 Pulse Ox 96 01/22/23 22:15 O2 Del Method Room Air 01/22/23 22:15 01/22/23 01/23/23 01/23/23 22:59 06:59 14:59 Intake Total 220 / 220 Balance 220 / 220 Weight last 48 hrs Weight 81.647 kg Weight 81.647 kg Weight 77.111 kg Data NPU 01/23/23 09:40 01/22/23 11:43 A&P Assessment and plan (1) Acute psychosis: (2) Acute on chronic anemia: (3) Chronic schizophrenia with acute exacerbation: (4) Ketamine use disorder, moderate, dependence: Plan This is a 57-year-old white female with a long history of mental health issues, addiction, specifically methamphetamine use with a history of methamphetamine induced psychosis which led to her coming to the hospital again seeking assistance. 1. Continue current medication. 2. Continue every 15 minute checks for safety. 3. Encourage individual, group and milieu therapy. 4. Encourage sober living treatment at the highest level of care to which she is willing to commit. Involuntary Hold Information 96 Hour Hold: 96 Hour Involuntary Admission: Yes 96 Hour Hold Ending Date: 01/28/23 96 Hour Hold Ending Time: 00:11 Attestations NPU Medical Necessity Statement*: Inpatient hospitalization is medically necessary and the clinically appropriate intervention at this time. We will monitor medications and make changes as indicated. Likely length of stay 2-4 days. Coding Level of Care Code Acute Code for Chg Fwd Diagnoses Acute psychosis F23 Acute on chronic anemia D64.9 Chronic schizophrenia with acute exacerbation F20.9 Ketamine use disorder, moderate, dependence F16.20
[2023-01-23 10:39] LABS: Slide Review Slide Review Perform
[2023-01-23 11:10] LABS: Estmated Average Glucose 103; Hemoglobin A1C 5.2 % (4.0-6.0)
--- NOTE | 2023-01-23 11:22 | P.PN_ITS ---
Subjective Subjective: Patient is at [facility]. Blood work appreciated for hemoglobin improving to 8.2, A1c of 5.2 and a stable lipid panel. No acute events otherwise. Has remained hemodynamically stable and afebrile. Vitals/I&O/Wt Last Vital Signs Temp 97.9 F 01/22/23 22:15 Pulse 85 01/22/23 22:15 Resp 16 01/23/23 06:00 BP 114/65 01/22/23 22:15 Pulse Ox 96 01/22/23 22:15 O2 Del Method Room Air 01/22/23 22:15 01/22/23 01/23/23 01/23/23 22:59 06:59 14:59 Intake Total 220 / 220 Balance 220 / 220 Weight last 48 hrs Weight 81.647 kg Weight 81.647 kg Weight 77.111 kg Physical Exam Narrative: General: No acute distress, AO x3 HEENT: PERRLA, pupils bilaterally equal and reactive, pallors not present Chest: Normal vesicular breath sounds, no added sounds, equal good air entry bilaterally CVS: S1-S2 regular, no murmurs, no tachycardia, no gallops, no rubs Abdomen: Soft, nontender, no organomegaly, bowel sounds present Neuro: No focal deficits, no facial deformity, AO x3, power 5/5 in all limbs Data 01/23/23 09:40 01/22/23 11:43 A&P Assessment and plan (1) Acute on chronic anemia: Post 1 unit blood transfusion. Most likely in setting of severe iron deficiency anemia along with vitamin B12 deficiency. Hemoglobin stable. Continue with oral iron and B12 supplementation. FOBT awaited. Patient should follow-up with surgery as an outpatient for EGD and colonoscopy for further evaluation. (2) Suicidal ideation: As per primary psychiatric team. On 96 hours. Plan Continue with oral Protonix twice daily. Can repeat hemoglobin in 1 week. If patient is discharged before that she should follow-up with a primary care provider within next 1 week of discharge for repeat CBC. Patient will get a referral to see surgeon as an outpatient for EGD and colonoscopy for further evaluation of iron deficiency anemia. Attestations Medical Necessity Statement*: Requires further hospitalization for 96-hour hold given suicidal ideation Diagnoses Acute on chronic anemia D64.9 Suicidal ideation R41.188
[2023-01-23 14:00] VITALS: BP 97/62; PULSE 87; RESP 16; TEMP 36.6; TEMP 36.8; O2SAT 95
[2023-01-23 20:15] VITALS: BP 115/78; PULSE 87; RESP 16; TEMP 36.6; O2SAT 98
[2023-01-23 22:00] VITALS: RESP 16
[2023-01-24 06:31] VITALS: RESP 12
--- NOTE | 2023-01-24 06:47 | W.PM.NPUPNS ---
Subjective NPU Subjective: Patient presented today reporting that she is doing fine. She was having symptoms less she reported and she seemed less hyperkinetic with less tweaking behavior. We discussed the need for ongoing sober living treatment but she seemed ambivalent and reported thinking she would be fine. We discussed Dr. Eldridge coming tomorrow and the treatment team return Thursday for follow-up and planning discharge. Mental Status Exam MSE Comments: This is a well-nourished, well-developed white female looking older than her stated age with adequate eye contact in hospital scrubs looking less disheveled. Absent dentition. No abnormal movements except for mild psychomotor agitation tweaking . Cooperative exam in mild to moderate distress. Speech was increased rate and normal volume. Mood described as a little better, affect congruent. Thought process organized. Thought content: Patient denied current suicidal or homicidal ideation, there was less paranoia reported and none noted, she denied auditory or visual hallucinations. Attention and concentration were intact and memory appeared reliable but none were formally tested. She is alert and oriented x3. Insight and judgment are limited and impulse control is impaired. Vitals/I&O/Wt Last Vital Signs Temp 97.8 F 01/23/23 20:15 Pulse 87 01/23/23 20:15 Resp 12 01/24/23 06:31 BP 115/78 01/23/23 20:15 Pulse Ox 98 01/23/23 20:15 O2 Del Method Room Air 01/23/23 20:15 01/23/23 01/23/23 01/24/23 14:59 22:59 06:59 Intake Total 440 / 440 220 / 660 Balance 440 / 440 220 / 660 Weight last 48 hrs Weight 81.647 kg Weight 81.647 kg Data NPU 01/23/23 09:40 01/22/23 11:43 A&P Assessment and plan (1) Acute psychosis: (2) Acute on chronic anemia: (3) Chronic schizophrenia with acute exacerbation: (4) Ketamine use disorder, moderate, dependence: Plan This is a 57-year-old white female with a long history of mental health issues, addiction, specifically methamphetamine use with a history of methamphetamine induced psychosis which led to her coming to the hospital again seeking assistance. 1. Continue current medication. 2. Continue every 15 minute checks for safety. 3. Encourage individual, group and milieu therapy. 4. Encourage sober living treatment at the highest level of care to which she is willing to commit. Involuntary Hold Information 96 Hour Hold: 96 Hour Involuntary Admission: Yes 96 Hour Hold Ending Date: 01/28/23 96 Hour Hold Ending Time: 00:11 Attestations NPU Medical Necessity Statement*: Inpatient hospitalization is medically necessary and the clinically appropriate intervention at this time. We will monitor medications and make changes as indicated. Likely length of stay 2-4 days. Coding Level of Care Code Acute Code for Chg Fwd Diagnoses Acute psychosis F23 Acute on chronic anemia D64.9 Chronic schizophrenia with acute exacerbation F20.9 Ketamine use disorder, moderate, dependence F16.20
[2023-01-24] MEDS: pantoprazole DR 40 mg Tablet PO ×2 (09:28→17:27)
[2023-01-24] MEDS: cyanocobalamin 1,000 mcg Tablet 500 MCG PO (09:28)
[2023-01-24] MEDS: OLANZapine 5 mg ODT PO (09:28)
[2023-01-24] MEDS: ziprasidone hcl 40 mg Capsule PO ×2 (09:28→17:27)
[2023-01-24] MEDS: iron complex forte Capsule 1 EACH PO ×2 (09:28→17:27)
[2023-01-24] MEDS: nicotine 14 mg Patch 1 PATCH TRANSDERMA (09:29)
[2023-01-24] MEDS: fluoxetine 20 mg Capsule 40 MG PO (09:29)
[2023-01-24 14:00] VITALS: BP 92/56; PULSE 83; RESP 16; TEMP 36.8; O2SAT 96
[2023-01-24 21:28] VITALS: BP 102/70; PULSE 96; RESP 20; TEMP 37.3; O2SAT 99
[2023-01-25 06:00] VITALS: BP 108/69; PULSE 88; RESP 18; TEMP 36.7; O2SAT 99
[2023-01-25] MEDS: cyanocobalamin 1,000 mcg Tablet 500 MCG PO (08:35)
[2023-01-25] MEDS: fluoxetine 20 mg Capsule 40 MG PO (08:35)
[2023-01-25] MEDS: nicotine 14 mg Patch 1 PATCH TRANSDERMA (08:35)
[2023-01-25] MEDS: pantoprazole DR 40 mg Tablet PO ×2 (08:35→18:32)
[2023-01-25] MEDS: ziprasidone hcl 40 mg Capsule PO ×2 (08:35→18:32)
[2023-01-25] MEDS: iron complex forte Capsule 1 EACH PO ×2 (08:36→18:32)
[2023-01-25 12:58] VITALS: BP 94/66; PULSE 89; RESP 17; TEMP 36.9; O2SAT 98
--- NOTE | 2023-01-25 14:03 | W.PM.NPUPNS ---
Subjective NPU Subjective: The patient is a 57-year-old white female with a history of psychosis depression and methamphetamine use admitted with increased agitation and suicidal ideation. The patient had stated that she had struggled with compliance in the past with medications. She reported having problems with methamphetamine abuse for over 40 years and stated that she had been clean without use of methamphetamine for 6 years. She had admitted to using methamphetamine in the recent past but stated that she was not using as frequently. She had reported daily use of Klonopin to help manage with anxiety prior to entering into the hospital. She had reported that she had been receiving follow-up under Dr. Ho and she had been treated for depression but stated that the Geodon had helped her in the past for anger and irritability. She reported no recent increase in these medications for several months. Staff notes the patient continued to isolate herself in the room. She had stated that she was no longer having thoughts of hurting herself. She had reported feeling restless. Mental Status Exam MSE Comments: This is a well-nourished, well-developed white female looking older than her stated age with adequate eye contact in hospital scrubs with a disheveled appearance. Absent dentition. No abnormal movements except for psychomotor agitation with prominent movement of his her lower extremities. She was cooperative exam in mild distress. Speech was increased rate and normal volume. Mood described as a better. Her affect was congruent. Thought process was linear and organized. Thought content: Patient denied current suicidal or homicidal ideation, there was less paranoia reported and none noted, she denied auditory or visual hallucinations. Attention and concentration were intact and memory appeared reliable but none were formally tested. She is alert and oriented x3. Insight and judgment are limited and impulse control is impaired. Vitals/I&O/Wt Last Vital Signs Temp 98.5 F 01/25/23 12:58 Pulse 89 01/25/23 12:58 Resp 17 01/25/23 12:58 BP 94/66 01/25/23 12:58 Pulse Ox 98 01/25/23 12:58 O2 Del Method Room Air 01/25/23 12:58 Weight last 48 hrs Weight 82.146 kg Data NPU 01/23/23 09:40 01/22/23 11:43 Micro: Microbiology 01/24/23 16:10 Occult Blood (FIT) - Final Stool Routine Collection Microbiology 06/03/23 16:10 Stool Routine Collection Occult Blood (FIT) - Final A&P Assessment and plan (1) Acute psychosis: (2) Acute on chronic anemia: (3) Chronic schizophrenia with acute exacerbation: (4) Methamphetamine abuse: Plan This is a 57-year-old white female with a long history of mental health issues, addiction, specifically methamphetamine use with a history of methamphetamine induced psychosis which led to her coming to the hospital again seeking assistance. 1. Continue current medications with restarting of routine klonopin instead of prn klonopin. 2. Continue every 15 minute checks for safety. 3. Encourage individual, group and milieu therapy. 4. Encourage sober living treatment at the highest level of care to which she is willing to commit. Involuntary Hold Information 96 Hour Hold: 96 Hour Involuntary Admission: Yes 96 Hour Hold Ending Date: 01/28/23 96 Hour Hold Ending Time: 00:11 Attestations NPU Medical Necessity Statement*: Inpatient hospitalization is medically necessary and the clinically appropriate intervention at this time. We will monitor medications and make changes as indicated. Likely length of stay 2-4 days. Coding Level of Care Code Acute Code for Chg Fwd Diagnoses Acute psychosis F23 Acute on chronic anemia D64.9 Chronic schizophrenia with acute exacerbation F20.9 Methamphetamine abuse F15.10
[2023-01-25] MEDS: CLONazepam 0.5 mg Tablet PO ×2 (15:07→20:35)
[2023-01-25 20:37] VITALS: BP 101/72; PULSE 95; RESP 18; TEMP 36.8; O2SAT 97
[2023-01-25] MEDS: docusate sodium 100 mg Capsule PO (21:07)
[2023-01-26 06:00] VITALS: BP 118/81; PULSE 104; RESP 18; TEMP 36.6; O2SAT 97
[2023-01-26] MEDS: ziprasidone hcl 40 mg Capsule PO ×2 (09:39→18:30)
[2023-01-26] MEDS: fluoxetine 20 mg Capsule 40 MG PO (09:39)
[2023-01-26] MEDS: iron complex forte Capsule 1 EACH PO ×2 (09:39→18:30)
[2023-01-26] MEDS: CLONazepam 0.5 mg Tablet PO ×3 (09:40→22:12)
[2023-01-26] MEDS: pantoprazole DR 40 mg Tablet PO ×2 (09:40→18:30)
[2023-01-26] MEDS: cyanocobalamin 1,000 mcg Tablet 500 MCG PO (09:40)
[2023-01-26] MEDS: nicotine 14 mg Patch 1 PATCH TRANSDERMA (09:41)
[2023-01-26 14:00] VITALS: BP 92/60; PULSE 78; RESP 16; TEMP 36.9; O2SAT 95
--- NOTE | 2023-01-26 19:13 | P.NPUPN_ITS ---
Subjective NPU Subjective: The patient is a 57-year-old white female with a history of psychosis depression and methamphetamine use admitted with increased agitation and suicidal ideation. Patient had denied suicidal thoughts. She had reported feeling much better with the routine use of Klonopin as she stated that she had been feeling less shaky. She had reported that she was not hearing voices and had slept better. She had endorsed a long history of sporadic methamphetamine use and was interested in any treatment modalities that would focus on her addiction as well. She had reported desire to use amphetamines in the past for helping with complaints of low energy. Mental Status Exam MSE Comments: This is a well-nourished, well-developed white female looking older than her stated age with adequate eye contact in hospital scrubs with a disheveled appearance. Absent dentition. No abnormal movements or abnormal movements of the lower extremities noted today. She was cooperative exam in less distress to day. Speech was normal in rate and normal volume. Mood described as good. Her affect was bright.. Thought process was linear and organized. Thought content: Patient denied current suicidal or homicidal ideation, there was less paranoia reported and none noted, she denied auditory or visual hallucinations. Attention and concentration were intact and memory appeared reliable but none were formally tested. She is alert and oriented x3. Insight and judgment are limited and impulse control is improving. Vitals/I&O/Wt Last Vital Signs Temp 98.5 F 01/26/23 14:00 Pulse 78 01/26/23 14:00 Resp 16 01/26/23 14:00 BP 92/60 01/26/23 14:00 Pulse Ox 95 01/26/23 14:00 O2 Del Method Room Air 01/26/23 14:00 Weight last 48 hrs Weight 82.146 kg Data NPU 01/23/23 09:40 01/22/23 11:43 A&P Assessment and plan (1) Acute psychosis: (2) Acute on chronic anemia: (3) Chronic schizophrenia with acute exacerbation: (4) Methamphetamine abuse: Plan This is a 57-year-old white female with a long history of mental health issues, addiction, specifically methamphetamine use with a history of methamphetamine induced psychosis which led to her coming to the hospital again seeking assistance. 1. Continue Geodon 80 mg daily along with Prozac 40 mg and Klonopin 0.5 mg 3 times a day. 2. Continue every 15 minute checks for safety. 3. Encourage individual, group and milieu therapy. 4. Encourage sober living treatment at the highest level of care to which she is willing to commit. Involuntary Hold Information 96 Hour Hold: 96 Hour Involuntary Admission: Yes 96 Hour Hold Ending Date: 01/28/23 96 Hour Hold Ending Time: 00:11 Attestations NPU 2 Medical Necessity Statement*: Inpatient hospitalization is medically necessary and the clinically appropriate intervention at this time. We will monitor medications and make changes as indicated. Likely length of stay 2-4 days. Coding Level of Care Code Acute Code for Chg Fwd Diagnoses Acute psychosis F23 Acute on chronic anemia D64.9 Chronic schizophrenia with acute exacerbation F20.9 Methamphetamine abuse F15.10
[2023-01-26 20:46] VITALS: BP 101/70; PULSE 91; RESP 18; TEMP 36.4; O2SAT 96
[2023-01-27 06:00] VITALS: BP 106/70; PULSE 88; RESP 18; TEMP 36.7; O2SAT 98
[2023-01-27] MEDS: pantoprazole DR 40 mg Tablet PO (09:10)
[2023-01-27] MEDS: fluoxetine 20 mg Capsule 40 MG PO (09:10)
[2023-01-27] MEDS: cyanocobalamin 1,000 mcg Tablet 500 MCG PO (09:10)
[2023-01-27] MEDS: iron complex forte Capsule 1 EACH PO (09:10)
[2023-01-27] MEDS: ziprasidone hcl 40 mg Capsule PO (09:10)
[2023-01-27] MEDS: polyethylene glycol 3350 Pkt 17 gm PO (09:10)
[2023-01-27] MEDS: CLONazepam 0.5 mg Tablet PO (09:10)
[2023-01-27] MEDS: nicotine 14 mg Patch 1 PATCH TRANSDERMA (09:11)
--- NOTE | 2023-01-27 09:17 | PC.NURSE ---
per pt request went to check to see if pt personal belonging made it to the unit. pt clothes were in a tote and money purse phone in safe. informed pt of her belongings did in fact brought from med surg to our unit and that she would get them upon discharge pt very grateful of the reassures of her belongings.
[2023-01-27 13:36] VITALS: BP 108/75; PULSE 89; RESP 12; TEMP 36.8; O2SAT 97
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
[2023-01-27 15:34] VITALS: BP 108/75; PULSE 89; RESP 12; TEMP 36.8; O2SAT 97
--- NOTE | 2023-01-27 16:00 | PC.NURSE ---
written discharge instruction discussed and left with patient. pt states understanding and compliance. pt left pov with spouse.
--- NOTE | 2023-01-27 16:26 | PC.NURSE ---
written discharge instruction discussed and left with patient. pt states understanding and compliance. pt left 1622 in pov
== END 2023-01-27 16:17 | disposition home or self-care (01) | DRG 885 ==
LOC: ER 23:25 → MEDSURG 01-22 00:46 → NP 01-22 21:16 → MEDSURG 01-23 11:16
PROVIDERS: Student in an Organized Health Care Education/Training Program; Admitting Provider Student in an Organized Health Care Education/Training Program; Emergency Provider Emergency Medicine; PCP Family Medicine; Visit Provider Psychiatry & Neurology Psychiatry
DX: F23 Brief psychotic disorder (principal); R45.851 Suicidal ideations; D50.9 Iron deficiency anemia, unspecified; D51.9 Vitamin B12 deficiency anemia, unspecified; K21.9 Gastro-esophageal reflux disease without esophagitis; F41.9 Anxiety disorder, unspecified; F17.210 Nicotine dependence, cigarettes, uncomplicated; F15.10 Other stimulant abuse, uncomplicated; B19.20 Unspecified viral hepatitis C without hepatic coma; E03.9 Hypothyroidism, unspecified; E78.00 Pure hypercholesterolemia, unspecified; Z91.51 Personal history of suicidal behavior; Z81.8 Family history of other mental and behavioral disorders
CPT/HCPCS: 36415; 36430; 80053; 80061; 80306; 80307; 82274; 82550; 82607; 82728; 82746; 83036; 83540; 83550; 84443; 84466; 85014; 85018; 85025; 85045; 86850; 86900; 86920; 93005; 96361; 96372; 96374; 97165; 99238; 99285; C9113; J3420; P9016; P9040